=== PATIENT | female | born 1950 | race Caucasian/White ===

== ENCOUNTER 2021-08-09 13:10 | Outpatient (REF) | payer MEDICARE, SELFPAY ==
--- NOTE | ~2021-08-09 | MM_ITS ---
EXAMINATION: BONE DENSITOMETRY CLINICAL INDICATION: Postmenopausal. Encounter for screening for osteoporosis. COMPARISON: None (current study represents initial baseline exam). TECHNIQUE: Using a [employer] DXA System (software version: 13.1) manufactured by [employer], dual-energy x-ray absorptiometry was performed of the lumbar spine and left hip. The images are of good technical quality. Summary results are attached. FINDINGS: AP SPINE L1-L4: BMD 1.153 g/cm2, Z-score 1.0, T-score -0.2, normal. LEFT FEMUR, NECK: BMD 0.790 g/cm2, Z-score -0.4, T-score -1.8, osteopenia. LEFT FEMUR, TOTAL: BMD 0.950 g/cm2, Z-score 0.7, T-score -0.5, normal. IDENTIFIED RISK FACTORS: Hysterectomy. Left oophorectomy. Low calcium intake. Menopause. HISTORY OF FRACTURE: None listed. MEDICATIONS: Calcium or multivitamin. MM/XR DEXA axial skeleton IMPRESSION: 1. DIAGNOSIS: Osteopenia based on the lowest T-score value of -1.8 in the femoral neck applying World Health Organization criteria. 2. 10-YEAR FRACTURE RISK PREDICTION, FRAX: Major osteoporotic fracture (clinical spine, forearm, hip or shoulder) 9.3%. Hip fracture 1.5%. 3. Treatment Recommendations: NOF guidelines recommend consideration for treatment in postmenopausal women and men age 50 and older presenting with the following: -A hip or vertebral (clinical or morphometric) fracture. -T-score less than or equal to -2.5 at the femoral neck or spine after appropriate evaluation to exclude secondary causes. -Low bone mass at the hip or spine and a 10-year fracture probability by FRAX of greater than or equal to 3% for hip fracture or greater than or equal to 20% for major osteoporotic fracture based on the [place] adapted WHO algorithm. 4. Other Recommendations: All treatment decisions require clinical judgment and consideration of individual patient factors, including patient preferences, comorbidities, previous drug use, risk factors not captured in the FRAX model (e.g. frailty, falls, vitamin D deficiency, increased bone turnover, interval significant decline in bone density) and possible under or overestimation of fracture risk by FRAX. Additional medical evaluation for secondary cause of low bone mineral density may be appropriate. FUTURE SCAN RECOMMENDATION: People with diagnosed cases of osteoporosis or at high risk for fracture should have regular bone mineral density tests. For patients eligible for Medicare, routine testing is allowed once every 2 years. The testing frequency can be increased to one year for patients who have rapidly progressing disease, those who are receiving or discontinuing medical therapy to restore bone mass, or have additional risk factors.
--- NOTE | ~2021-08-09 | MM_ITS ---
EXAMINATION: MM SCREENING DIGITAL BREAST TOMOSYNTHESIS, BILATERAL CLINICAL INFORMATION: Screening. Asymptomatic. The lifetime risk of breast cancer based on the Tyrer-Cuzick Model is 6.9%. COMPARISON: Mammography: October 30, 2017 TECHNIQUE: Digital breast tomosynthesis is performed in both the craniocaudal and mediolateral oblique views along with computer-aided detection (CAD). Synthesized 2D images are generated from the tomosynthesis. FINDINGS: There are scattered areas of fibroglandular density (ACR BI-RADS breast composition Category b). There are no significant masses, abnormal calcifications, or other abnormalities. MM/MM tomosynthesis screening BI IMPRESSION: There are no significant changes from prior study. ASSESSMENT: BI-RADS 1: Negative RECOMMENDATION: Routine annual mammography screening. This patient's information was entered into a reminder system with a target due date for their next mammogram.
== END 2021-08-09 13:11 | disposition home or self-care (01) ==
LOC: HO.MAMMO 13:10
PROVIDERS: PCP Internal Medicine; Visit Provider Internal Medicine
DX: Z12.31 Encounter for screening mammogram for malignant neoplasm of breast (principal); Z13.820 Encounter for screening for osteoporosis; M85.80 Other specified disorders of bone density and structure, unspecified site; N95.8 Other specified menopausal and perimenopausal disorders; Z78.0 Asymptomatic menopausal state; Z90.721 Acquired absence of ovaries, unilateral; Z79.899 Other long term (current) drug therapy
CPT/HCPCS: 77063; 77067; 77080

== ENCOUNTER 2021-10-03 11:07 | Outpatient (REF) | payer MEDICARE, SELFPAY ==
[2021-10-03 11:12] LABS: MANUAL DIFF FLAG NO
[2021-10-03 11:59] LABS: Basophils Percent Auto 0.4 % (0-2); Eosinophils Absolute Auto 0.3 X10*3/uL (0.0-0.4); Eosinophils Percent Auto 3.7 % (0-4); Hematocrit 44.8 % (37.0-47.0); Hemoglobin 14.3 g/dl (12.0-16.0); Imm Gran Abs Auto 0.03 X10*3/uL (0.00-0.03); Imm Gran Pct Auto 0.4 % (0.0-0.4); Lymphocytes Percent Auto 25.1 % (20-40); Mean Corpuscular HGB Conc 31.9 g/dl (31.0-35.0); Mean Corpuscular Hemoglobin 29.8 pg (27.0-33.0); Mean Corpuscular Volume 93.3 fL (80.0-98.0); Mean Platelet Volume 10.7 fL (9.4-12.3); Monocytes Absolute Auto 0.6 X10*3/uL (0.1-1.2); Monocytes Percent Auto 7.1 % (2-11); Neutrophils Absolute Auto 4.9 x10*3/uL (2.0-8.3); Neutrophils Percent Auto 63.3 % (45-73); Platelet Count 286 X10*3/uL (160-400); Red Cell Distribution Width 13.1 % (11.0-16.0); White Blood Count 7.8 X10*3/uL (4.8-10.8)
[2021-10-03 12:12] LABS: Estimated Average Glucose 114 mg/dL; Hemoglobin A1c % 5.6 %
[2021-10-03 12:13] LABS: Appearance Urine HAZY; Color Urine YELLOW; Glucose Urine UA NEG (NEG); Leukocyte Esterase Urine NEG (NEG); Nitrite Urine NEG (NEG); Specific Gravity - Urine 1.025 (1.005-1.025); Urine Blood 2+ (NEG); Urine Ketones NEG (NEG); Urine Protein NEG (NEG-TRACE)
[2021-10-03 12:18] LABS: Alanine Aminotransferase 11 U/L (0-31); Albumin Level 4.4 g/dL (3.5-5.0); Alkaline Phosphatase 107 U/L (39-117); Anion Gap 12 (12-20); Aspartate Amino Transferase 14 U/L (5-31); Bilirubin Total 0.4 mg/dL (0.0-1.0); Blood Urea Nitrogen 16 mg/dL (9-16); Calcium 10.1 mg/dL (8.4-10.2); Carbon Dioxide 30 mmol/L (22-29); Chloride 106 mmol/L (96-108); Cholesterol 225 mg/dL; Estimated Glomerular Filt Rate > 60; Glucose Fasting 104 mg/dL (60-99); HDL Cholesterol 42 mg/dL; LDL Cholesterol Calculated 157 mg/dl; Potassium 4.5 mmol/L (3.3-5.1); Sodium 143 mmol/L (135-145); Total Protein 7.4 g/dL (6.5-8.0); Triglycerides 131 mg/dL
[2021-10-03 12:37] LABS: Bacteria Urine 3+ /LPF; Mucus Urine 2+ /LPF; Squamous Epithelial Cell Urine 3+ /LPF
[2021-10-03 12:39] LABS: TSH reflex Free T4 0.02 uIU/mL (0.32-4.0)
[2021-10-03 12:43] LABS: Creatinine Urine 126.78 mg/dL; Microalbum/Creatinine Ratio Ur 10.2 ug/mg cr
[2021-10-03 13:28] LABS: Free T4 (Free Thyroxine) 1.17 ng/dL (0.71-1.85)
== END 2021-10-03 11:08 | disposition home or self-care (01) ==
LOC: HO.LNP 11:07
PROVIDERS: Visit Provider Internal Medicine
DX: E03.9 Hypothyroidism, unspecified (principal); R73.03 Prediabetes; E78.00 Pure hypercholesterolemia, unspecified
CPT/HCPCS: 80053; 80061; 81001; 81003; 82043; 83036; 84439; 84443; 85025

== ENCOUNTER 2022-01-06 10:23 | Outpatient (REF) | payer MEDICARE, SELFPAY ==
[2022-01-06 11:14] LABS: TSH reflex Free T4 0.03 uIU/mL (0.32-4.0)
[2022-01-06 12:08] LABS: Free T4 (Free Thyroxine) 1.38 ng/dL (0.71-1.85)
== END 2022-01-06 10:24 | disposition home or self-care (01) ==
LOC: HO.LNP 10:23
PROVIDERS: Visit Provider Internal Medicine
DX: E03.9 Hypothyroidism, unspecified (principal)
CPT/HCPCS: 84439; 84443

== ENCOUNTER 2022-04-15 10:50 | Outpatient (REF) | payer MEDICARE, SELFPAY ==
[2022-04-15 11:34] LABS: TSH reflex Free T4 1.74 uIU/mL (0.32-4.0)
== END 2022-04-15 10:51 | disposition home or self-care (01) ==
LOC: HO.LNP 10:50
PROVIDERS: Visit Provider Internal Medicine
DX: E03.9 Hypothyroidism, unspecified (principal)
CPT/HCPCS: 84443

== ENCOUNTER 2022-10-09 11:03 | Outpatient (REF) | payer MEDICARE, SELFPAY ==
[2022-10-09 11:08] LABS: MANUAL DIFF FLAG NO
[2022-10-09 11:37] LABS: Basophils Absolute Auto 0.1 X10*3/uL (0.0-0.2); Basophils Percent Auto 0.9 % (0-2); Eosinophils Absolute Auto 0.3 X10*3/uL (0.0-0.4); Eosinophils Percent Auto 3.4 % (0-4); Hematocrit 44.5 % (37.0-47.0); Hemoglobin 14.4 g/dl (12.0-16.0); Imm Gran Abs Auto 0.03 X10*3/uL (0.00-0.03); Imm Gran Pct Auto 0.4 % (0.0-0.4); Lymphocytes Absolute Auto 2.4 X10*3/uL (1.2-4.9); Lymphocytes Percent Auto 27.9 % (20-40); Mean Corpuscular HGB Conc 32.4 g/dl (31.0-35.0); Mean Corpuscular Hemoglobin 30.7 pg (27.0-33.0); Mean Corpuscular Volume 94.9 fL (80.0-98.0); Mean Platelet Volume 10.8 fL (9.4-12.3); Monocytes Absolute Auto 0.6 X10*3/uL (0.1-1.2); Monocytes Percent Auto 7.2 % (2-11); Neutrophils Absolute Auto 5.1 x10*3/uL (2.0-8.3); Neutrophils Percent Auto 60.2 % (45-73); Platelet Count 275 X10*3/uL (160-400); Red Blood Count 4.69 X10*6/uL (4.20-5.50); Red Cell Distribution Width 13.7 % (11.0-16.0); White Blood Count 8.5 X10*3/uL (4.8-10.8)
[2022-10-09 11:45] LABS: Estimated Average Glucose 111 mg/dL; Hemoglobin A1c % 5.5 %
[2022-10-09 11:50] LABS: Appearance Urine Cloudy; Color Urine Yellow; Glucose Urine UA Negative (Negative); Leukocyte Esterase Urine Small (1+) (Negative); Nitrite Urine Negative (Negative); PH 5.5 (5.0-9.0); UMIC TRIGGER UACC YES; Urine Blood Small (1+) (Negative); Urine Ketones Negative (Negative); Urine Protein Trace mg/dL (Neg-Trace)
[2022-10-09 12:14] LABS: Alanine Aminotransferase 18 U/L (0-31); Albumin Level 4.4 g/dL (3.5-5.0); Alkaline Phosphatase 97 U/L (39-117); Anion Gap 13 (12-20); Aspartate Amino Transferase 18 U/L (5-31); Bilirubin Total 0.6 mg/dL (0.0-1.0); Blood Urea Nitrogen 9 mg/dL (9-16); Calcium 9.8 mg/dL (8.4-10.2); Carbon Dioxide 29 mmol/L (22-29); Chloride 105 mmol/L (96-108); Cholesterol 271 mg/dL; Estimated Glomerular Filt Rate > 60; Glucose Fasting 108 mg/dL (60-99); HDL Cholesterol 48 mg/dL; LDL Cholesterol Calculated 181 mg/dl; Potassium 4.4 mmol/L (3.3-5.1); Sodium 143 mmol/L (135-145); Total Protein 7.3 g/dL (6.5-8.0); Triglycerides 214 mg/dL
[2022-10-09 12:25] LABS: Bacteria Urine 1+ (None Seen); Calcium Oxalate Crystals Urine Present; Hyaline Casts Urine 0-2 /LPF (0-2); UACC Culture Trigger YES
[2022-10-09 12:48] LABS: Creatinine Urine 236.03 mg/dL; Microalbum/Creatinine Ratio Ur 19.9 ug/mg cr
== END 2022-10-09 11:04 | disposition home or self-care (01) ==
LOC: HO.LNP 11:03
PROVIDERS: Visit Provider Internal Medicine
DX: E03.9 Hypothyroidism, unspecified (principal); R73.03 Prediabetes; E78.00 Pure hypercholesterolemia, unspecified; R31.29 Other microscopic hematuria
CPT/HCPCS: 80053; 80061; 81001; 82043; 83036; 85025; 87086

== ENCOUNTER 2022-10-17 15:51 | Outpatient (REF) | payer MEDICARE, SELFPAY ==
[2022-10-17 17:29] LABS: Folate > 20.0 ng/mL (> or = 4.0); Vitamin B12 709 pg/mL (200-900)
== END 2022-10-17 15:52 | disposition home or self-care (01) ==
LOC: HO.LNP 15:51
PROVIDERS: Visit Provider Internal Medicine
DX: R41.3 Other amnesia (principal)
CPT/HCPCS: 82607; 82746

== ENCOUNTER 2023-05-11 10:54 | Outpatient (REF) | payer MEDICARE, SELFPAY ==
[2023-05-11 12:42] LABS: Estimated Average Glucose 103 mg/dL; Hemoglobin A1c % 5.2 % (<6.0)
[2023-05-11 12:57] LABS: Alanine Aminotransferase 17 U/L (0-31); Albumin Level 4.3 g/dL (3.5-5.0); Alkaline Phosphatase 94 U/L (39-117); Aspartate Amino Transferase 18 U/L (5-31); Bilirubin Direct 0.2 mg/dL (0.0-0.5); Bilirubin Total 0.5 mg/dL (0.0-1.0); Glucose Fasting 102 mg/dL (60-99); Total Protein 7.6 g/dL (6.5-8.0)
[2023-05-11 13:00] LABS: Cholesterol 244 mg/dL (<200); HDL Cholesterol 42 mg/dL (>40); LDL Cholesterol Calculated 161 mg/dL (<100); Triglycerides 206 mg/dL (<150)
[2023-05-11 13:37] LABS: Reflex LDLD? No
== END 2023-05-11 10:55 | disposition home or self-care (01) ==
LOC: HO.LNP 10:54
PROVIDERS: Visit Provider Internal Medicine
DX: E78.00 Pure hypercholesterolemia, unspecified (principal); R73.03 Prediabetes
CPT/HCPCS: 80061; 80076; 82947; 83036

== ENCOUNTER 2023-05-18 11:02 | Outpatient (REF) | payer MEDICARE, SELFPAY ==
[2023-05-18 11:56] LABS: TSH reflex Free T4 2.86 uIU/mL (0.32-4.0)
== END 2023-05-18 11:03 | disposition home or self-care (01) ==
LOC: HO.LNP 11:02
PROVIDERS: Visit Provider Internal Medicine
DX: E03.9 Hypothyroidism, unspecified (principal)
CPT/HCPCS: 84443

== ENCOUNTER 2023-06-19 09:17 | Outpatient (REF) | payer MEDICARE, SELFPAY ==
--- NOTE | ~2023-06-19 | MR_ITS ---
EXAMINATION: MR BRAIN WITHOUT CONTRAST CLINICAL INFORMATION: Mild cognitive impairment COMPARISON: None. TECHNIQUE: MRI of the brain was obtained using routine sequences without contrast. FINDINGS: No acute infarct. No acute intracranial hemorrhage or extra-axial fluid collection. Mild generalized parenchymal volume loss without lobar predilection. A few nonspecific T2 FLAIR hyperintense foci within the high bifrontal subcortical white matter. Chronic infarct in the right cerebellum. No mass lesion, mass effect, or herniation pattern. Normal intracranial arterial and dural venous sinus flow voids. Normal appearance of the midline structures. Patulous appearance of Meckel's caves with suspected small petrous apex encephaloceles. The orbits are grossly unremarkable. The paranasal sinuses and mastoids are well aerated. Normal marrow signal. MR/MR head/brain wo con IMPRESSION: Mild age-appropriate global cerebral volume loss without lobar predilection. Chronic right cerebellar infarct.
== END 2023-06-19 09:18 | disposition home or self-care (01) ==
LOC: HO.MRI 09:17
PROVIDERS: PCP Internal Medicine; Visit Provider Internal Medicine
DX: G31.84 Mild cognitive impairment of uncertain or unknown etiology (principal)
CPT/HCPCS: 70551

== ENCOUNTER 2023-07-27 14:47 | Outpatient (REF) | payer MEDICARE, SELFPAY ==
--- NOTE | ~2023-07-27 | US_ITS ---
EXAMINATION: US EXTRACRANIAL CAROTID DUPLEX, BILATERAL CLINICAL INFORMATION: Chronic right cerebral infarct seen on MRI. COMPARISON: MRI head/brain 06/19/2023. TECHNIQUE: Real-time ultrasound and Doppler techniques (integrating B-mode 2-D vascular images, Doppler spectral analysis and color-flow Doppler imaging) were utilized to interrogate the extracranial carotid arteries, the vertebral arteries and proximal subclavian arteries bilaterally. The degree of stenosis is determined by criteria similar to NASCET. FINDINGS: Some small bilateral neck lymph nodes are seen. Right Side: 1. There is mild atherosclerotic plaque seen in the bifurcation/proximal ICA region. 2. The common carotid artery PSV proximally is 105 cm/s and distally 98 cm/s. 3. The proximal internal carotid artery velocities are 89 cm/s systolic and 35 cm/s diastolic. 4. The proximal external carotid artery PSV is 79 cm/s. 5. The vertebral artery shows antegrade flow. 6. The subclavian artery waveforms are normal. Left Side: 1. There is mild atherosclerotic plaque seen in the bifurcation/proximal ICA region. 2. The common carotid artery PSV proximally is 104 cm/s and distally 93 cm/s. 3. The proximal internal carotid artery velocities are 67 cm/s systolic and 28 cm/s diastolic. 4. The proximal external carotid artery PSV is 92 cm/s. 5. The vertebral artery shows antegrade flow. 6. The subclavian artery waveforms are normal. US/US carotid duplex BI IMPRESSION: 1. RIGHT: Minimal, non-hemodynamically significant stenosis of the proximal right internal carotid artery corresponding to a 0-49% stenosis by velocity criteria. 2. LEFT: Minimal, non-hemodynamically significant stenosis of the proximal left internal carotid artery corresponding to a 0-49% stenosis by velocity criteria.
== END 2023-07-27 14:48 | disposition home or self-care (01) ==
LOC: HO.US 14:47
PROVIDERS: PCP Internal Medicine; Visit Provider Internal Medicine
DX: Z86.73 Personal history of transient ischemic attack (TIA), and cerebral infarction without residual deficits (principal)
CPT/HCPCS: 93880

== ENCOUNTER 2023-10-19 18:23 | Emergency (ER) | payer MEDICARE, OTHER, SELFPAY ==
--- NOTE | ~2023-10-19 | CT_ITS ---
EXAMINATION: CT ABDOMEN AND PELVIS WITHOUT CONTRAST CLINICAL INFORMATION: Reason for Exam left flank/ LLQ pain. COMPARISON: 02/17/2012 CT scan. TECHNIQUE: Multidetector volumetric imaging was performed from the superior aspect of the liver through the pubic symphysis without contrast per renal stone protocol. Sagittal and coronal reformatted images were obtained on the technologist workstation. This CT examination was performed using dose optimization techniques as appropriate, variously including the following: *Automated exposure control *Adjustment of mA and/or kV according to patient size (this includes techniques or standardized protocols for targeted exams where dose is matched to indication/reason for exam; i.e. extremities or head) *Use of iterative reconstruction technique DLP: 706 mGy-cm. FINDINGS: LUNG BASES: The visualized lung bases are unremarkable. LIVER, GALLBLADDER, BILIARY TREE: The non-contrast liver is normal in size, shape, and attenuation. No focal hepatic lesion or biliary ductal dilatation is present. The gallbladder surgically absent. PANCREAS: Unremarkable. SPLEEN: Unremarkable. ADRENAL GLANDS: Unremarkable. KIDNEYS AND URETERS: There is left-sided hydronephrosis and perinephric stranding. The left ureter is mildly prominent throughout its course extending up to a very subtle 2 mm calcification in the distal left ureter just proximal to the UVJ. This subtle calculi is best appreciated on coronal image 60/90. Contralateral right kidney unremarkable. BLADDER: Decompressed GASTROINTESTINAL TRACT: Scattered colonic diverticulosis but no evidence for diverticulitis. Normal-appearing appendix in the right lower quadrant. Visualized small bowel unremarkable ABDOMINAL WALL: No significant hernia is appreciated. LYMPHOVASCULAR STRUCTURES: Vascular calcification within the aorta iliac system. PELVIC VISCERA: Likely surgically absent OSSEUS STRUCTURES: Multilevel degenerative changes in the spine. CT/CT abdomen pelvis wo IV con IMPRESSION: Left-sided hydronephrosis and hydroureter extending up to a very subtle 2 mm calcification in the distal left ureter just proximal to the UVJ.
--- NOTE | 2023-10-19 19:03 | ED.GENADULT ---
HPI - General Adult General Chief complaint: Abdominal Pain Stated complaint: vomiting,lower abd pain Time Seen by Provider: 10/20/23 00:16 Source: patient Mode of arrival: ambulatory Limitations: no limitations History of Present Illness HPI narrative: Patient with no significant past medical history noticed sudden onset of pain in the left flank area radiating to left lower abdomen started early in a.m. associated with nausea and vomiting multiple times patient had CT scan done prior to my evaluation which showed 2 mm UVJ stone on the left side with hydro patient urinated in the ER and noticed small stone in the urine after that patient felt much better no pain at this time no nausea no vomiting no prior history of kidney stone no fever no chills Related Data Allergies Allergy/AdvReac Type Severity Reaction Status Date / Time No Known Allergies Allergy Verified 10/19/23 19:04 Review of Systems Review of Systems: Yes all other systems are reviewed and are negative [facility] Social History Social History Smoked in Last 30 Days: No Use of substances other than those prescribed or required for medical reasons: No Advance Directives: No Advance Directives Information Provided: No Physical Exam ED Vital Signs: Vital Signs - 24 hr 10/19/23 19:05 10/19/23 23:28 10/20/23 01:21 Temperature 97.4 F 98.2 F 98.0 F Pulse Rate 91 81 82 Respiratory Rate 20 16 14 Blood Pressure 150/70 H 149/79 H 138/59 L Pulse Oximetry 95 95 97 Oxygen Delivery Method Room Air Room Air Room Air 10/20/23 02:25 Temperature Pulse Rate 76 Respiratory Rate 14 Blood Pressure 117/52 L Pulse Oximetry Oxygen Delivery Method BMI result Body Mass Index 39.0 Appearance: Alert. Oriented X3. No acute distress. Eyes: PERRLA, No Nystagmus ENT: Pharynx normal. Oral Mucosa moist Neck: Normal inspection. Neck supple. CVS: Normal heart rate and rhythm. Pulses normal. Respiratory: No respiratory distress. Equal air entry bilateral, Abdomen: Soft and nontender. Bowel sounds are present, no mass palpable, no CVA tenderness Skin: Skin warm and dry. Normal skin color. Normal skin turgor. Extremities: No lower extremity edema. No calf tenderness Neuro: Oriented X 3. No motor deficit. Course Course Course Narrative: RME:?73 yo female here for eval of nausea, vomiting, and constant left flank pain now radiating to LLQ beginning this morning. admits daughter recently got over the stomach flu. endorses distant hx of SBO which presented similarly. last BM this morning was loose stool. denies fever, chills, dysuria, hematuria. 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 labs, serology, UA, and ct ordered. Full HPI, ROS and PE to be performed by the primary ED provider. Medications Administered Discontinued Medications Generic Name Dose Route Start Last Admin Trade Name [place] PRN Reason Stop Dose Admin Sodium Chloride 1,000 mls @ 999 mls/hr 10/20/23 00:22 10/20/23 01:43 Ns IV 10/20/23 01:22 Infused .Q1H1M ONE Infusion Morphine Sulfate 4 mg 10/20/23 00:22 10/20/23 00:42 Morphine Sulfate 4 Mg/Ml Cartridge IVPUSH 10/20/23 00:23 Not Given ONCE ONE Protocol Ondansetron HCl 4 mg 10/20/23 00:22 10/20/23 00:43 Ondansetron Hcl 4 Mg/2 Ml Vial IVPUSH 10/20/23 00:23 Not Given ONCE ONE Medical Decision Making Medical Decision Making [facility] Narrative: Patient with acute left flank pain clinically with renal colic passed the stone in the ER CT scan showed hydro patient feeling much better at this without any pain medication Differential Diagnosis Differential Diagnoses: The differential diagnosis associated with the presentation includes Renal colic/kidney stones/UTI Lab Data [facility] Lab Attestation statement: I reviewed the patient's lab results. 10/19/23 19:31 10/19/23 19:31 Labs: Lab Results 10/19/23 Range/Units 19:31 WBC 17.2 H (4.8-10.8) X10*3/uL RBC 4.58 (4.20-5.50) X10*6/uL Hgb 14.0 (12.0-16.0) g/dl Hct 41.7 (37.0-47.0) % MCV 91.0 (80.0-98.0) fL MCH 30.6 (27.0-33.0) pg MCHC 33.6 (31.0-35.0) g/dl RDW 13.2 (11.0-16.0) % Plt Count 252 (160-400) X10*3/uL MPV 9.9 (9.4-12.3) fL Immature Gran % (Auto) 0.3 (0.0-0.4) % Neut % (Auto) 88.0 H (45-73) % Lymph % (Auto) 6.2 L (20-40) % [place]ug[place] % (Auto) 4.8 (2-11) % Eos % (Auto) 0.2 (0-4) % Baso % (Auto) 0.5 (0-2) % Lymph # (Auto) 1.1 L (1.2-4.9) X10*3/uL [place]ug[place] # (Auto) 0.8 (0.1-1.2) X10*3/uL Eos # (Auto) 0.0 (0.0-0.4) X10*3/uL Baso # (Auto) 0.1 (0.0-0.2) X10*3/uL Abs Immat Gran (auto) 0.06 H (0.00-0.03) X10*3/uL Absolute Neuts (auto) 15.1 H (2.0-8.3) x10*3/uL Absolute Nucleated RBC 0.000 (0.0-0.012) X10*3/uL Nucleated RBC % (auto) 0.0 (0.0-0.2) /100WBC Sodium 142 (135-145) mmol/L Potassium 4.1 (3.3-5.1) mmol/L Chloride 107 (96-108) mmol/L Carbon Dioxide 24 (22-29) mmol/L Anion Gap 15 (12-20) BUN 13 (9-16) mg/dL Creatinine 0.89 (0.5-1.4) mg/dL Estim Creat Clear Calc 64.3 Estimated GFR > 60 Random Glucose 124 H (60-115) mg/dL Calcium 10.1 (8.4-10.2) mg/dL Total Bilirubin 0.4 (0.0-1.0) mg/dL AST 22 (5-31) U/L ALT 22 (0-31) U/L Alkaline Phosphatase 114 (39-117) U/L Total Protein 7.9 (6.5-8.0) g/dL Albumin 4.5 (3.5-5.0) g/dL Lipase 18 (8-78) U/L Urine Color Yellow Urine Appearance Cloudy Urine pH 6.5 (5.0-9.0) Ur Specific Gordon 1.025 (1.005-1.025) Urine Protein 30 (1+) H (Neg-Trace) mg/dL Urine Glucose (UA) Negative (Negative) mg/dL Urine Ketones 15 (Negative) mg/dL Urine Blood Large (3+) H (Negative) Urine Nitrite Negative (Negative) Ur Leukocyte Esterase Negative (Negative) Urine RBC >20 H (0-2) /HPF Urine WBC 0-5 (0-5) /HPF Ur Squamous Epith Cells 0-2 (0-2) /HPF Urine Bacteria None Seen (None Seen) Hyaline Casts 0-2 (0-2) /LPF Influenza Type A (PCR) NEGATIVE (Negative) Influenza Type B (PCR) NEGATIVE (Negative) RSV RNA Qual (PCR) NEGATIVE (Negative) SARS-CoV-2 RNA (RT-PCR) NEGATIVE (Negative) Independent Interpretation I performed an independent interpretation of an: CT Scan Radiology Impression Discussion of test interpretation with radiology: I have reviewed the radiologist's reading. Discharge Plan Discharge Clinical Impression: Calculus of distal left ureter Patient Disposition: Home, Self-Care Instructions: Renal Colic (ED) Additional Instructions: Drink plenty of fluids Avoid food containing oxalate You had 2 mm stone on the left side which already passed hopefully you will not have pain anymore Interventions: ED Discharge Assessment Last Done: 10/20/23 02:25 Discharge Date/Time: 10/20/23 02:26
[2023-10-19 19:05] VITALS: BP 150/70; PULSE 91; RESP 20; TEMP 36.3; O2SAT 95; BMI 39.0
[2023-10-19 19:38] LABS: MANUAL DIFF FLAG NO
[2023-10-19 19:39] LABS: Basophils Absolute Auto 0.1 X10*3/uL (0.0-0.2); Basophils Percent Auto 0.5 % (0-2); Eosinophils Percent Auto 0.2 % (0-4); Hematocrit 41.7 % (37.0-47.0); Imm Gran Abs Auto 0.06 X10*3/uL (0.00-0.03); Imm Gran Pct Auto 0.3 % (0.0-0.4); Lymphocytes Absolute Auto 1.1 X10*3/uL (1.2-4.9); Lymphocytes Percent Auto 6.2 % (20-40); Mean Corpuscular HGB Conc 33.6 g/dl (31.0-35.0); Mean Corpuscular Hemoglobin 30.6 pg (27.0-33.0); Mean Platelet Volume 9.9 fL (9.4-12.3); Monocytes Absolute Auto 0.8 X10*3/uL (0.1-1.2); Monocytes Percent Auto 4.8 % (2-11); Neutrophils Absolute Auto 15.1 x10*3/uL (2.0-8.3); Platelet Count 252 X10*3/uL (160-400); Red Blood Count 4.58 X10*6/uL (4.20-5.50); Red Cell Distribution Width 13.2 % (11.0-16.0); White Blood Count 17.2 X10*3/uL (4.8-10.8)
[2023-10-19 19:40] LABS: Appearance Urine Cloudy; Color Urine Yellow; Glucose Urine UA Negative (Negative); Leukocyte Esterase Urine Negative (Negative); Nitrite Urine Negative (Negative); PH 6.5 (5.0-9.0); Specific Gravity - Urine 1.025 (1.005-1.025); UMIC TRIGGER UACC YES; Urine Blood Large (3+) (Negative); Urine Ketones 15 mg/dL (Negative); Urine Protein 30 (1+) mg/dL (Neg-Trace)
[2023-10-19 19:45] LABS: Bacteria Urine None Seen (None Seen); Hyaline Casts Urine 0-2 /LPF (0-2); RBC Urine >20 /HPF (0-2); Squamous Epithelial Cell Urine 0-2 /HPF (0-2); WBC Urine 0-5 /HPF (0-5)
[2023-10-19 19:56] LABS: Alanine Aminotransferase 22 U/L (0-31); Albumin Level 4.5 g/dL (3.5-5.0); Alkaline Phosphatase 114 U/L (39-117); Anion Gap 15 (12-20); Aspartate Amino Transferase 22 U/L (5-31); Bilirubin Total 0.4 mg/dL (0.0-1.0); Blood Urea Nitrogen 13 mg/dL (9-16); Calcium 10.1 mg/dL (8.4-10.2); Carbon Dioxide 24 mmol/L (22-29); Chloride 107 mmol/L (96-108); Creatinine Clr Calc Pharmacy 64.3; Estimated Glomerular Filt Rate > 60; Glucose Random 124 mg/dL (60-115); Lipase 18 U/L (8-78); Potassium 4.1 mmol/L (3.3-5.1); Sodium 142 mmol/L (135-145); Total Protein 7.9 g/dL (6.5-8.0)
[2023-10-19 20:18] LABS: Influenza A PCR NEGATIVE (Negative); Influenza B PCR NEGATIVE (Negative); Resp Syncy Virus RNA Qual PCR NEGATIVE (Negative); SARS COV2 PCR INHOUSE NEGATIVE (Negative)
[2023-10-19 23:28] VITALS: BP 149/79; PULSE 81; RESP 16; TEMP 36.8; O2SAT 95
[2023-10-20] MEDS: 0.9 % Sodium Chloride 1,000 ML 999 ML IV (00:42)
--- NOTE | 2023-10-20 00:55 | PC.NURSE ---
Pt declines zofran and morphine at this time.
[2023-10-20 01:21] VITALS: BP 138/59; PULSE 82; RESP 14; TEMP 36.7; O2SAT 97
[2023-10-20 02:25] VITALS: BP 117/52; PULSE 76; RESP 14
== END 2023-10-20 02:26 | disposition home or self-care (01) ==
PROVIDERS: Physician Assistant Medical; Emergency Provider Internal Medicine; PCP Internal Medicine
DX: N20.1 Calculus of ureter (principal); R10.32 Left lower quadrant pain; R11.2 Nausea with vomiting, unspecified; Z11.52 Encounter for screening for COVID-19; Z20.822 Contact with and (suspected) exposure to COVID-19; Z79.899 Other long term (current) drug therapy
CPT/HCPCS: 0241U; 36415; 74176; 80053; 81001; 83690; 85025; 96360; 99284; 99285

== ENCOUNTER 2023-10-30 11:38 | Outpatient (REF) | payer MEDICARE, OTHER, SELFPAY ==
[2023-10-30 11:43] LABS: MANUAL DIFF FLAG NO
[2023-10-30 12:26] LABS: Basophils Absolute Auto 0.1 X10*3/uL (0.0-0.2); Basophils Percent Auto 0.6 % (0-2); Eosinophils Absolute Auto 0.4 X10*3/uL (0.0-0.4); Eosinophils Percent Auto 4.5 % (0-4); Hemoglobin 14.3 g/dl (12.0-16.0); Imm Gran Abs Auto 0.03 X10*3/uL (0.00-0.03); Imm Gran Pct Auto 0.4 % (0.0-0.4); Lymphocytes Percent Auto 23.5 % (20-40); Mean Corpuscular HGB Conc 31.8 g/dl (31.0-35.0); Mean Corpuscular Hemoglobin 29.9 pg (27.0-33.0); Mean Corpuscular Volume 94.1 fL (80.0-98.0); Mean Platelet Volume 10.3 fL (9.4-12.3); Monocytes Absolute Auto 0.7 X10*3/uL (0.1-1.2); Monocytes Percent Auto 7.6 % (2-11); Neutrophils Absolute Auto 5.4 x10*3/uL (2.0-8.3); Neutrophils Percent Auto 63.4 % (45-73); Platelet Count 291 X10*3/uL (160-400); Red Blood Count 4.78 X10*6/uL (4.20-5.50); Red Cell Distribution Width 13.2 % (11.0-16.0); White Blood Count 8.5 X10*3/uL (4.8-10.8)
[2023-10-30 12:28] LABS: Appearance Urine Cloudy; Color Urine Yellow; Glucose Urine UA Negative (Negative); Leukocyte Esterase Urine Trace (Negative); Nitrite Urine Negative (Negative); UMIC TRIGGER UACC YES; Urine Blood Moderate (2+) (Negative); Urine Ketones Negative (Negative); Urine Protein Negative (Neg-Trace)
[2023-10-30 12:38] LABS: Estimated Average Glucose 111 mg/dL; Hemoglobin A1c % 5.5 % (<6.0)
[2023-10-30 12:49] LABS: Bacteria Urine Trace (None Seen); Calcium Oxalate Crystals Urine Present; Hyaline Casts Urine 0-2 /LPF (0-2); RBC Urine 0-2 /HPF (0-2); WBC Urine 0-5 /HPF (0-5)
[2023-10-30 13:05] LABS: Alanine Aminotransferase 23 U/L (0-31); Albumin Level 4.3 g/dL (3.5-5.0); Alkaline Phosphatase 113 U/L (39-117); Anion Gap 7 (12-20); Aspartate Amino Transferase 20 U/L (5-31); Bilirubin Total 0.5 mg/dL (0.0-1.0); Blood Urea Nitrogen 10 mg/dL (9-16); Calcium 9.7 mg/dL (8.4-10.2); Carbon Dioxide 35 mmol/L (22-29); Chloride 104 mmol/L (96-108); Cholesterol 132 mg/dL (<200); Estimated Glomerular Filt Rate > 60; Glucose Fasting 97 mg/dL (60-99); HDL Cholesterol 40 mg/dL (>40); LDL Cholesterol Calculated 66 mg/dL (<100); Potassium 3.9 mmol/L (3.3-5.1); Sodium 142 mmol/L (135-145); Total Protein 7.6 g/dL (6.5-8.0); Triglycerides 134 mg/dL (<150)
[2023-10-30 13:07] LABS: TSH reflex Free T4 1.58 uIU/mL (0.32-4.0)
[2023-10-30 13:08] LABS: Microalbum/Creatinine Ratio Ur 7.1 ug/mg cr (<30)
== END 2023-10-30 11:39 | disposition home or self-care (01) ==
LOC: HO.LNP 11:38
PROVIDERS: Visit Provider Internal Medicine
DX: E03.9 Hypothyroidism, unspecified (principal); E78.00 Pure hypercholesterolemia, unspecified; R73.09 Other abnormal glucose
CPT/HCPCS: 80053; 80061; 81001; 82043; 82570; 83036; 84443; 85025

== ENCOUNTER 2023-12-04 11:27 | Outpatient (REF) | payer MEDICARE, OTHER, SELFPAY ==
[2023-12-04 11:38] LABS: Appearance Urine Clear; Color Urine Yellow; Glucose Urine UA Negative (Negative); Leukocyte Esterase Urine Trace (Negative); Nitrite Urine Negative (Negative); UMIC TRIGGER UA YES; Urine Blood Small (1+) (Negative); Urine Ketones Negative (Negative); Urine Protein Negative (Neg-Trace)
[2023-12-04 11:50] LABS: Bacteria Urine Trace (None Seen); Hyaline Casts Urine 0-2 /LPF (0-2); Other Crystals Urine Present; WBC Urine 0-5 /HPF (0-5)
== END 2023-12-04 11:28 | disposition home or self-care (01) ==
LOC: HO.LNP 11:27
PROVIDERS: Visit Provider Internal Medicine
DX: R31.29 Other microscopic hematuria (principal)
CPT/HCPCS: 81001

== ENCOUNTER 2024-05-03 11:49 | Outpatient (REF) | payer MEDICARE, OTHER, SELFPAY ==
[2024-05-03 12:37] LABS: Estimated Average Glucose 114 mg/dL; Hemoglobin A1c % 5.6 % (<6.0)
[2024-05-03 12:55] LABS: Alanine Aminotransferase 19 U/L (0-31); Albumin Level 4.1 g/dL (3.5-5.0); Alkaline Phosphatase 122 U/L (39-117); Aspartate Amino Transferase 18 U/L (5-31); Bilirubin Direct 0.2 mg/dL (0.0-0.5); Bilirubin Total 0.4 mg/dL (0.0-1.0); Cholesterol 126 mg/dL (<200); Glucose Fasting 111 mg/dL (60-99); HDL Cholesterol 36 mg/dL (>40); LDL Cholesterol Calculated 68 mg/dL (<100); Total Protein 7.3 g/dL (6.5-8.0); Triglycerides 110 mg/dL (<150)
[2024-05-03 13:01] LABS: Reflex LDLD? No
== END 2024-05-03 11:50 | disposition home or self-care (01) ==
LOC: HO.LNP 11:49
PROVIDERS: Visit Provider Internal Medicine
DX: E78.00 Pure hypercholesterolemia, unspecified (principal); R73.09 Other abnormal glucose
CPT/HCPCS: 80061; 80076; 82947; 83036

== ENCOUNTER 2024-11-01 10:09 | Outpatient (REF) | payer MEDICARE, OTHER, SELFPAY ==
[2024-11-01 10:12] LABS: MANUAL DIFF FLAG NO
[2024-11-01 10:54] LABS: Appearance Urine Clear; Basophils Absolute Auto 0.1 X10*3/uL (0.0-0.2); Basophils Percent Auto 0.8 % (0-2); Color Urine Yellow; Eosinophils Absolute Auto 0.4 X10*3/uL (0.0-0.4); Eosinophils Percent Auto 4.1 % (0-4); Glucose Urine UA Negative (Negative); Hematocrit 44.8 % (37.0-47.0); Hemoglobin 14.3 g/dl (12.0-16.0); Imm Gran Abs Auto 0.04 X10*3/uL (0.00-0.03); Imm Gran Pct Auto 0.4 % (0.0-0.4); Leukocyte Esterase Urine Negative (Negative); Lymphocytes Absolute Auto 2.4 X10*3/uL (1.2-4.9); Lymphocytes Percent Auto 26.4 % (20-40); Mean Corpuscular HGB Conc 31.9 g/dl (31.0-35.0); Mean Corpuscular Hemoglobin 30.2 pg (27.0-33.0); Mean Corpuscular Volume 94.7 fL (80.0-98.0); Mean Platelet Volume 10.4 fL (9.4-12.3); Monocytes Absolute Auto 0.7 X10*3/uL (0.1-1.2); Monocytes Percent Auto 7.6 % (2-11); Neutrophils Absolute Auto 5.5 x10*3/uL (2.0-8.3); Neutrophils Percent Auto 60.7 % (45-73); Nitrite Urine Negative (Negative); PH 6.5 (5.0-9.0); Platelet Count 291 X10*3/uL (160-400); Red Blood Count 4.73 X10*6/uL (4.20-5.50); Red Cell Distribution Width 13.7 % (11.0-16.0); UMIC TRIGGER UACC YES; Urine Blood Trace (Negative); Urine Ketones Negative (Negative); Urine Protein Negative (Neg-Trace)
[2024-11-01 11:08] LABS: Alanine Aminotransferase 27 U/L (0-31); Albumin Level 4.4 g/dL (3.5-5.0); Alkaline Phosphatase 113 U/L (39-117); Anion Gap 10 (12-20); Aspartate Amino Transferase 28 U/L (5-31); Bacteria Urine Trace (None Seen); Bilirubin Total 0.5 mg/dL (0.0-1.0); Blood Urea Nitrogen 15 mg/dL (9-16); Calcium 9.7 mg/dL (8.4-10.2); Carbon Dioxide 31 mmol/L (22-29); Chloride 105 mmol/L (96-108); Cholesterol 159 mg/dL (<200); Estimated Glomerular Filt Rate > 60; Glucose Fasting 103 mg/dL (60-99); HDL Cholesterol 51 mg/dL (>40); Hyaline Casts Urine 0-2 /LPF (0-2); LDL Cholesterol Calculated 86 mg/dL (<100); Potassium 4.2 mmol/L (3.3-5.1); RBC Urine 0-2 /HPF (0-2); Sodium 142 mmol/L (135-145); Total Protein 8.1 g/dL (6.5-8.0); Triglycerides 110 mg/dL (<150); WBC Urine 0-5 /HPF (0-5)
[2024-11-01 11:09] LABS: Other Crystals Urine Present
[2024-11-01 11:10] LABS: Estimated Average Glucose 114 mg/dL; Hemoglobin A1c % 5.6 % (<6.0)
[2024-11-01 11:50] LABS: Creatinine Urine 121.56 mg/dL; Microalbum/Creatinine Ratio Ur 6.5 ug/mg cr (<30)
--- OUTSIDE RECORDS SUMMARY | 2024-11-01 11:55 | XMS_ITS ---
Author Organization Riley Gottlieb MD Address [address] [place] [phone] Care Team Providers Care Car Stereo Installer Name Role Phone Chery Riley Primary Care Provider [phone] Allergies No Known Allergies REASON FOR VISIT 6 MO F/U Encounters Encounter Location Date Provider Diagnosis Riley Gottlieb MD 10 [facility] [address] [place] [phone] 05/19/2024 Riley Gottlieb Plan Of Treatment Next Appt Details Provider Name:Rliey Saunders ier, 11/08/2024 10:30:00 AM, 10 [facility], Suite [facility], [place], [place], [phone], Progress Notes * Katherine BOLANOS MDOB: [birth year] (74 yo F)Acc No.[id number]:05/19/2024 Progress Notes Patient:?Katherine BOLANOS Provider:?Riley Gottlieb MD :1950???Age:74 Y???Sex:Female D ate:05/19/2024 Address:[address], [place], [id number] Subjective: * Chief Complaints: * ???1. 6 MO F/U. * ROS:?General/Constitutional:?Denies?Chills.?Denies?Fatigue.?Denies?Fever.?Denies?Headache.?Respiratory:?Denies?Cough.?Denies?Shortness of breath at rest.?Denies?Shortness of breath with exertion.?Gastrointestinal:?Denies?Diarrhea.?Denies?Nausea.? * Medical History:?Hematuria w ork up 2003, Colonoscopy refused again 2016 2022 thinking about it refused 2023, Low HDL (under 40), Spoke to rediologist who read mri and she says the [place] was insignificant. * Allergies:?N.K.D.A. Objective: * Vitals:? * ???Past Orders: ???Lab:Liver Panel (Order Da te - 05/03/2024) (Collection Date & Time - 05/03/2024) ? Value Reference Range ?Bilirubin Total 0.4 0.0- 1.0 - mg/dL ?Bilirubin Direct 0.2 0.0 -0.5 - mg/dL ?Aspartate Amino Transferase 18 5-31 - U/L ?Alanine Aminotransferase 19 0-31 - U/L ?Total Protein 7.3 6.5-8. 0 - g/dL ?Albumin Level 4.1 3.5-5. 0 - g/dL ?Alkaline Phosphatase 122 H 39-117 - U/L ???Lab:Glucose Fasting (Orde r Date - 05/03/2024) (Collection Date & Time - 05/03/2024) ? Value Reference Range ?Glucose Fasting 111 H 60-9 9 - mg/dL ???Lab:Lipid Panel with Refl ex (Order Date - 05/03/2024) (Collection Date & Time - 05/03/2024) ? Value Reference Range ?Triglycerides 110 <150 - mg/dL ?Cholesterol 126 <200 - m g/dL ?LDL Cholesterol Calculated 68 <100 - mg/dL ?HDL Cholesterol 36 L >40 - mg/dL ???Lab:Hemoglobin A1c (Order Date - 05/03/2024) (Collection Date & Time - 05/03/2024) ? Value Reference Range ?Hemoglobin A1c % 5.6 <6. 0 - % ?Estimated Average Glucose 114 - mg/dL Assessment: Plan: * Treatment: * * The named appointment provid er may or may not be the originator of this progress note, and it is not deemed complete until electronically signed by the appointment provider. Sign off status: Pending * Provider:?Riley Gottlieb MD Date:?0 05/19/2024 Generated for Catrachito ruiz/Hanh/Demetria on:?11/01/2024 11:55 AM EDT
--- OUTSIDE RECORDS SUMMARY | 2024-11-01 11:55 | XMS_ITS ---
Author Organization Riley Gottlieb MD Address [address] [place], [place] [phone] Care Team Providers Care Permit Agent Name Role Phone Riley Gottlieb Primary Care Provider [phone] Results Component Value Reference Range Notes Liver Panel Reviewed date:05/03/2024 06:00:11 PM Interpretation: Performing Lab:[facility], [address] [place] [phone] Notes/Report: Bilirubin Total 0.4 0.0-1.0 mg/dL Bilirubin Direct 0.2 0.0-0.5 mg/dL Aspartate Amino Transferase 18 5-31 U/L Alanine Aminotransferase 19 0-31 U/L Total Protein 7.3 6.5-8.0 g/dL Albumin Level 4.1 3.5-5.0 g/dL Alkaline Phosphatase 122 39-117 U/L Glucose Fasting Reviewed date:05/03/2024 05:59:59 PM Interpretation: Performing Lab:[facility], [address] [place] [phone] Notes/Report: Glucose Fasting 111 60-99 mg/dL A fasting glucose from 100-125 mg/dl is considered impaired (pre-diabetes). Lipid Panel with Reflex Reviewed date:05/03/2024 06:01:38 PM Interpretation: Performing Lab:[facility], [address] [place] [phone] Notes/Report: Triglycerides 110 <150 mg/dL Desirable Triglyceride: [...] A1c Reviewed date:05/03/2024 05:59:50 PM Interpretation: Performing Lab:[facility], [address] [place] [phone] Notes/Report: Hemoglobin A1c % 5.6 <6.0 % [...] average glucose, using the formula of the J2F-Smfcinb Average Glucose study (ADAG), Diabetes Care, Vol.31,#8, Mar. 2007 REASON FOR VISIT FASTING LIPIDS Immunizations Vaccine Route Administration Date Status Comme nts Influenza High Dose IM Intramuscular 05/03/2024 Administer ed Encounters Encounter Location Date Provider Diagnosis Riley Gottlieb MD [address] [place] [address] Drive [address] [place], [place] [phone] 05/03/2024 Riley Gottlieb Pure hypercholestero lemia E78.00 ; Encounter for immunization Z23 and Prediabetes R73.09 Assessments Encounter Date Diagnosis (ICD Code) Assessment Notes Treatment Notes Treatment Clinical Notes Section Notes 05/03/2024 Pure hypercholesterolemia (ICD-10 - E78.00) 05/03/2024 Encounter for immunization (ICD-10 - Z23) 05/03/2024 Prediabetes (ICD-10 - R73.09) Plan Of Treatment Next Appt Details Provider Name:Riley Saunders ier, 11/08/2024 10:30:00 AM, [address] [facility], [address], [place], [place], [phone], Progress Notes * Katherine BOLANOS MDOB: [birth year] (74 yo F)Acc No.[id number]:05/03/2024 Progress Note Patient:?Katherine BOLANOS Provider:?Riley Gottlieb MD :1950???Age:73 Y???Sex:Female D ate:05/03/2024 Address:[place] [address], [id number] Subjective: * Chief Complaints: * ???1. FASTING LIPIDS. * Medical History:? Objective: * Vitals:? Assessment: * Assessment: 1.?Encounter for immunizatio n - Z23 (Primary)???2.?Pure hypercholesterolemia - E78.00???3.?Prediabetes - R73.09??? Plan: * Treatment: 2.?Prediabetes?LAB: Liver Panel (Collection Date & Time - 05/03/2024) ?LAB: Glucose Fasting (Collection Date & Time - 05/03/2024) ?LAB: Lipid Panel with Reflex (Collection Date & Time - 05/03/2024) ?LAB: Hemoglobin A1c (Collection Date & Time - 05/03/2024) * Immunizations:? Influenza High Dose : 0.5 mL (Dose No:1) (Route: Intramuscular) given by Alice Ng , Office Staff on Left Deltoid * Procedure Codes:?91463 FLU V ACC PRSV FREE INC ANTIG, G0008 ADMN FLU VAC NO FEE SCHED SAME DAY, 75339 VENIPUNCT, ROUTINE* * * The named appointment provid er may or may not be the originator of this progress note, and it is not deemed complete until electronically signed by the appointment provider. Sign off status: Pending * Provider:?Riley Gottlieb MD Date:?0 05/03/2024 Generated for Catrachito ruiz/Hanh/Ceesmitting on:?11/01/2024 11:54 AM EDT
--- OUTSIDE RECORDS SUMMARY | 2024-11-01 11:56 | XMS_ITS ---
Author Organization Riley Gottlieb MD Address [address] [place] [phone] Care Team Providers Care Supervisor [employer] Name Role Phone Riley Gottlieb Primary Care Provider Results Component Value Reference Range Notes Complete Blood Count Auto Di ff (Not yet reviewed by provider) Interpretation: Performing Lab:[facility], [address] [place] [phone] Notes/Report: White Blood Count 9.0 4.8-10.8 X10*3/uL [...] NRBC Abs Auto 0.000 0.0-0.012 X10*3/uL Comprehensive [place]. Panel Fa st (Not yet reviewed by provider) Interpretation: Performing Lab:[facility], [address] [place] [phone] Notes/Report: Sodium 142 135-145 mmol/L Potassium 4.2 [...] Alkaline Phosphatase 113 39-117 U/L Lipid Panel (Not yet review ed by provider) Interpretation: Performing Lab:[address] [phone] Notes/Report: Triglycerides 110 <150 mg/dL Desirable Triglyceride: [...] in patients with liver disease. Microalbumin, Random (Not ye t reviewed by provider) Interpretation: Performing Lab:[address] [phone] Notes/Report: Creatinine Urine 121.56 Microalbumin Urine 8.0 Microalbum/Creatinine Ratio Ur 6.5 <30 ug/mg cr Albumin/Creatinine Ratio Reference Ranges: Normal: < 30 ug/mg creatinine Microalbuminuria: 30 - 300 ug/mg creatinine Clinical Albuminuria: > 300 ug/mg creatinine Hemoglobin A1c (Not yet revi ewed by provider) Interpretation: Performing Lab:[facility], [address] [place] [phone] Notes/Report: Hemoglobin A1c % 5.6 <6.0 % [...] average glucose, using the formula of the I5C-Aebkefm Average Glucose study (ADAG), Diabetes Care, Vol.31,#8, 2007 UA ClnCatch+Micro w/rflx Cul t (Not yet reviewed by provider) Interpretation: Performing Lab:[facility], [address] [place] [phone] Notes/Report: Urine, Clean Catch Color Urine Yellow Appearance Urine Clear PH 6.5 5.0-9.0 Glucose Urine UA Negative Negative mg/dL Urine Blood Trace Negative Specific [place] - Urine 1.020 1.005-1.025 Urine Protein Negative [...] Date Provider Diagnosis Riley Gottlieb MD [address] [place] [phone] 11/01/2024 Riley Gottlieb Acquired hypothyroid ism E03.9 ; Prediabetes R73.09 and Pure hypercholesterolemia E78.00 Assessments Encounter Date Diagnosis (ICD Code) Assessment Notes Treatment Notes Treatment Clinical Notes Section Notes 11/01/2024 Acquired hypothyroid ism (ICD-10 - E03.9) 11/01/2024 Prediabetes (ICD-10 - R73.09) 11/01/2024 Pure hypercholesterolemia (ICD-10 - E78.00) Plan Of Treatment Pending Test Test Name Order Date Complete Blood Count Auto Diff 5 Comprehensive [place]. Panel Fast 5 Lipid Panel 11/01/2024 Microalbumin, Random 11/01/2024 Hemoglobin A1c 11/01/2024 UA ClnCatch+Micro w/rflx Cult 11/01/2024 Next Appt Details Provider Name:Riley Saunders ieangi, 11/08/2024 10:30:00 AM, [address], [address], [place], [place], [phone], Progress Notes * Katherine BOLANOS MDOB: [birth year] (74 yo F)Acc No.[id number]:11/01/2024 Progress Note Patient:?Katherine BOLANOS Provider:?Riley Gottlieb MD :1950???Age:74 Y???Sex:Female D ate:11/01/2024 Address:[id number], [place], [id number] Subjective: * Chief Complaints: * ???1. FASTING LABS. * Medical History:? Objective: * Vitals:? Assessment: * Assessment: 1.?Acquired hypothyroidism - E03.9 (Primary)???2.?Prediabetes - R73.09???3.?Pure hypercholesterolemia - E78.00??? Plan: * Treatment: 2.?Prediabetes?LAB: Complete Blood Count Auto Diff (Collection Date & Time - 11/01/2024 07:15 AM) ?LAB: Comprehensive [place]. Panel Fast (Collection Date & Time - 11/01/2024 07:15 AM) ?LAB: Lipid Panel (Collection Date & Time - 11/01/2024 07:15 AM) ?LAB: Microalbumin, Random (Collection Date & Time - 11/01/2024 07:15 AM) ?LAB: Hemoglobin A1c (Collection Date & Time - 11/01/2024 07:15 AM) ?LAB: UA ClnCatch+Micro w/rflx Cult (Collection Date & Time - 11/01/2024 07:15 AM) 3.?Pure hypercholesterolemia ?LAB: Complete Blood Count Auto Diff (Collection Date & Time - 11/01/2024 07:15 AM) ?LAB: Comprehensive [place]. Panel Fast (Collection Date & Time - 11/01/2024 07:15 AM) ?LAB: Lipid Panel (Collection Date & Time - 11/01/2024 07:15 AM) ?LAB: Microalbumin, Random (Collection Date & Time - 11/01/2024 07:15 AM) ?LAB: Hemoglobin A1c (Collection Date & Time - 11/01/2024 07:15 AM) ?LAB: UA ClnCatch+Micro w/rflx Cult (Collection Date & Time - 11/01/2024 07:15 AM) * Procedure Codes:?44210 VENIP UNCT, ROUTINE* * * The named appointment provid er may or may not be the originator of this progress note, and it is not deemed complete until electronically signed by the appointment provider. Sign off status: Pending * Provider:?Riley Gottlieb MD Date:?0 11/01/2024 Generated for Catrachito ruzi/Hanh/Marianaitting on:?11/01/2024 11:55 AM EDT
== END 2024-11-01 10:10 | disposition home or self-care (01) ==
LOC: HO.LNP 10:09
PROVIDERS: Visit Provider Internal Medicine
DX: E03.9 Hypothyroidism, unspecified (principal); R73.03 Prediabetes; E78.00 Pure hypercholesterolemia, unspecified
CPT/HCPCS: 80053; 80061; 81001; 82043; 82570; 83036; 85025

== ENCOUNTER 2024-12-16 14:01 | Outpatient (REF) | payer MEDICARE, OTHER, SELFPAY ==
[2024-12-16 14:44] LABS: TSH reflex Free T4 13.01 uIU/mL (0.32-4.0)
[2024-12-16 15:16] LABS: Free T4 (Free Thyroxine) 0.85 ng/dL (0.71-1.85)
== END 2024-12-16 14:02 | disposition home or self-care (01) ==
LOC: HO.LNP 14:01
PROVIDERS: Visit Provider Internal Medicine
DX: E03.9 Hypothyroidism, unspecified (principal)
CPT/HCPCS: 84439; 84443

== ENCOUNTER 2025-04-21 10:56 | Outpatient (REF) | payer MEDICARE, OTHER, SELFPAY ==
--- OUTSIDE RECORDS SUMMARY | 2024-05-19 13:00 | XMS_ITS ---
Author Organization Riley Gottlieb MD Address [address] [place] [phone] Care Team Providers Care Refined Syrup Operator Name Role Phone Riley Gottlieb Primary Care Provider Allergies No Known Allergies REASON FOR VISIT 6 MO F/U Encounters Encounter Location Date Provider Diagnosis Riley Gottlieb MD [address] [place] [address] [address] [place] [phone] 05/19/2024 Riley Gottlieb Plan Of Treatment Next Appt Details Provider Name:Riley neumann, 06/16/2025 08:15:00 AM, [address] [place] [address], [place] [address], [place], [place], [phone], Provider Name:Riley neumann, 12/12/2025 07:45:00 AM, [address] [place] [address], [address], [phone], Provider Name:Riley neumann, 12/19/2025 11:00:00 AM, [address], [address], [place], [phone], Progress Notes * Katherine BOLANOS MDOB: [birth year] (74 yo F)Acc No.[id number]:05/19/2024 Progress Notes Patient: Katherine BLANKENSHIP Provider: Tyron Gottlieb MD :1950 A ge:74 Y S ex:Female Date:05/19/2024 Address:[place] [address], [facility], [id number] Subjective: * Chief Complaints: * 1 . 6 MO F/U. * ROS: G eneral/Constitutional: Denies C hills. D enies F atigue. D enies F ever. D enies H eadache. R espiratory: Denies C ough. D enies S hortness of breath at rest. D enies S hortness of breath with exertion. G astrointestinal: Denies D iarrhea. D enies N ausea. * Medical History: H ematuria work up 2003, Colonoscopy refused again 2016 2022 thinking about it refused 2023, Low HDL (under 40), Spoke to rediologist who read mri and [facility]. * Allergies: N .K.D.A. Objective: * Vitals: * P ast Orders: L ab:Liver Panel (Order Date - 05/03/2024) (Collection Date & Time - 05/03/2024) Value Reference Range Bilirubin Total 0.4 0.0-1.0 - mg/dL Bilirubin Direct 0.2 0.0-0.5 - mg/dL Aspartate Amino Transferase 18 5-31 - U/L Alanine Aminotransferase 19 0-31 - U/L Total Protein 7.3 6.5-8.0 - g/dL Albumin Level 4.1 3.5-5.0 - g/dL Alkaline Phosphatase 122 H 39-117 - U/L L ab:Glucose Fasting (Order Date - 05/03/2024) (Collection Date & Time - 05/03/2024) Value Reference Range Glucose Fasting 111 H 60-99 - mg/dL L ab:Lipid Panel with Reflex (Order Date - 05/03/2024) (Collection Date & Time - 05/03/2024) Value Reference Range Triglycerides 110 <150 - mg/dL Cholesterol 126 <200 - mg/dL LDL Cholesterol Calculated 68 <100 - mg/dL HDL Cholesterol 36 L >40 - mg/dL L ab:Hemoglobin A1c (Order Date - 05/03/2024) (Collection Date & Time - 05/03/2024) Value Reference Range Hemoglobin A1c % 5.6 <6.0 - % Estimated Average Glucose 114 - mg/dL Assessment: Plan: * Treatment: * * The named appointment provid er may or may not be the originator of this progress note, and it is not deemed complete until electronically signed by the appointment provider. Sign off status: Pending * Provider: Tyron Gottlieb MD Date: 0 05/19/2024 Generated for Catrachito ruiz/Hanh/Marianaitting on: 0 04/21/2025 11:37 AM EDT
--- OUTSIDE RECORDS SUMMARY | 2024-11-01 03:15 | XMS_ITS ---
Author Organization Riley Gottlieb MD Address [address] [place] [phone] Care Team Providers Care Automotive Machinist Name Role Phone Riley Gottlieb Primary Care Provider [phone] Results Component Value Reference Range Notes Complete Blood Count Auto Di ff Reviewed date:11/01/2024 12:39:13 PM Interpretation: Performing Lab:[facility], [address] [place] [phone] Notes/Report: White Blood Count 9.0 4.8-10.8 X10*3/uL [...] NRBC Abs Auto 0.000 0.0-0.012 X10*3/uL Comprehensive [place]. Panel Fa st Reviewed date:11/01/2024 12:32:37 PM Interpretation: Performing Lab:[facility], [address] [place] [phone] Notes/Report: Sodium 142 135-145 mmol/L Potassium 4.2 [...] Panel Reviewed date:11/01/2024 12:12:34 PM Interpretation: Performing Lab:[facility], [address] [place] [phone] Notes/Report: Triglycerides 110 <150 mg/dL Desirable Triglyceride: [...] Random Reviewed date:11/01/2024 12:12:17 PM Interpretation: Performing Lab:[facility], [address] [place] [phone] Notes/Report: Creatinine Urine 121.56 Microalbumin Urine 8.0 Microalbum/Creatinine Ratio Ur 6.5 <30 ug/mg cr Albumin/Creatinine Ratio Reference Ranges: Normal: < 30 ug/mg creatinine Microalbuminuria: 30 - 300 ug/mg creatinine Clinical Albuminuria: > 300 ug/mg creatinine Hemoglobin A1c Reviewed date:11/01/2024 12:12:09 PM Interpretation: Performing Lab:[address] [phone] Notes/Report: Hemoglobin A1c % 5.6 <6.0 % [...] average glucose, using the formula of the L0S-Gteutlq Average Glucose study (ADAG), Diabetes Care, Vol.31,#8, 2007 UA ClnCatch+Micro w/rflx Cul t Reviewed date:11/01/2024 12:39:42 PM Interpretation: Performing Lab:[facility], [address] [place] [phone] Notes/Report: Urine, Clean Catch Color Urine Yellow Appearance Urine Clear PH 6.5 5.0-9.0 Glucose Urine UA Negative Negative mg/dL Urine Blood Trace Negative Specific [place] - Urine 1.020 1.005-1.025 Urine Protein Negative [...] Location Date Provider Diagnosis Riley Gottlieb MD [address] [place] [address] [place] [phone] 11/01/2024 Riley Gottlieb Acquired hypothyroid ism E03.9 ; Prediabetes R73.09 and Pure hypercholesterolemia E78.00 Assessments Encounter Date Diagnosis (ICD Code) Assessment Notes Treatment Notes Treatment Clinical Notes Section Notes 11/01/2024 Acquired hypothyroid ism (ICD-10 - E03.9) 11/01/2024 Prediabetes (ICD-10 - R73.09) 11/01/2024 Pure hypercholesterolemia (ICD-10 - E78.00) Plan Of Treatment Next Appt Details Provider Name:Riley neumann, 06/16/2025 08:15:00 AM, [address] [place] [address], [address], [phone], Provider Name:Riley neumann, 12/12/2025 07:45:00 AM, [address] [place] [address], [address], [phone], Provider Name:Riley neumann, 12/19/2025 11:00:00 AM, [address] [facility], [address], [place], [place], [phone], Progress Notes * Katherine BOLANOS MDOB: [birth year] (74 yo F)Acc No.[id number]:11/01/2024 Progress Note Patient: Katherine BLANKENSHIP Provider: Tyron Gottlieb MD :1950 A ge:74 Y S ex:Female Date:11/01/2024 Address:[place] [address], [facility], [facility] Subjective: * Chief Complaints: * 1 . FASTING LABS. * Medical History: Objective: * Vitals: Assessment: * Assessment: 1. A cquired hypothyroidism - E03.9 (Primary) 2 . P rediabetes - R73.09? 3. P ure hypercholesterolemia - E78.00 Plan: * Treatment: 2. P rediabetes L AB: Complete Blood Count Auto Diff (Collection Date & Time - 11/01/2024 07:15 AM) L AB: Comprehensive [place]. Panel Fast (Collection Date & Time - [...] - 11/01/2024 07:15 AM) L AB: Comprehensive [place]. Panel Fast (Collection Date & Time - [...] MD Date: 0 11/01/2024 Generated for Catrachito ruiz/Hanh/Marianaitting on: 0 04/21/2025 11:37 AM EDT
--- OUTSIDE RECORDS SUMMARY | 2024-12-16 07:00 | XMS_ITS ---
Author Organization Riley Gottlieb MD Address [address] [place] [phone] Care Team Providers Care Certified Nursing Assistant Name Role Phone Riley Gottlieb Primary Care Provider [phone] Allergies No Known Allergies Results Component Value Reference Range Notes TSH reflex Free T4 Reviewed date:12/16/2024 03:48:03 PM Interpretation: Performing Lab:[facility], [address] [place] [phone] Notes/Report: TSH reflex Free T4 13.01 0.32-4.0 uIU/mL REASON FOR VISIT review labs, Accompanied by Medications Medication SIG (Take, Route, Frequency, Duration) Notes Start Date End Date Status Aspir-Low 81 MG 1 tablet Orally Once a day for 30 day(s) 07/02/2023 Active Prevagen 10 MG as directed Orally Active Levothyroxine Sodium 137 MCG TAKE 1 TABLET BY MOUTH EVERY DAY IN THE MORNING ON EMPTY STOMACH Not-Taking Atorvastatin Calcium 40 MG TAKE 1 TABLET BY MOUTH EVERY DAY Active Donepezil HCl 5 MG TAKE 1 TABLET BY SID TH EVERY DAY AT BEDTIME for 90 Active Levothyroxine Sodium 100 MCG TAKE 1 TABLET BY MOUTH EVERY DAY Active Social History Tobacco Use: Social History Observation Description Date Details (start date - stop date) Never Smoker NA - NA Tobacco Use/Smoking Question Answer Notes Patient is a nonsmoker Additional Findings: Tobacco Non-User Cu rrent non-smoker, currently using no form of tobacco Alcohol Screen Question Answer Notes Did you have a drink contain ing alcohol in the past year? Yes How often did you have a dri nk containing alcohol in the past year? Monthly or less (1 point) How many drinks did you have on a typical day when you were drinking in the past year? 1 or 2 drinks (0 point) How often did you have 6 or more drinks on one occasion in the past year? Never (0 point) Points 1 Interpretation Negative Vital Signs Blood pressure systolic 142 mm Hg 12/17/19 25 Blood pressure diastolic 70 mm Hg 025 Height 62 in 12/16/2024 Weight 206 lbs 12/16/2024 BMI 37.67 kg/m2 12/16/2024 weight is down 4 pounds [facility] 11-06-23 Encounters Encounter Location Date Provider Diagnosis Riley Gottlieb MD [address] [place] [address] [place] [phone] 12/16/2024 Riley Gottlieb Acquired hypothyroid ism E03.9 ; Prediabetes R73.09 ; Pure hypercholesterolemia E78.00 and Depression screening Z13.31 Assessments Encounter Date Diagnosis (ICD Code) Assessment Notes Treatment Notes Treatment Clinical Notes Section Notes 12/16/2024 Acquired hypothyroid ism (ICD-10 - E03.9) stable, will continue current regiment 12/16/2024 Prediabetes (ICD-10 - R73.09) well controlled, no need for medication at this time 12/16/2024 Pure hypercholesterolemia (ICD-10 - E78.00) doing well, will continue current regiment 12/16/2024 Depression screening (ICD-10 - Z13.31) negative screen Plan Of Treatment Medication Medication Name Sig Start Date Stop Date Notes Atorvastatin Calcium 40 MG TAKE 1 TABLET BY MOUTH EVERY DAY Levothyroxine Sodium 100 MCG TAKE 1 TABL ET BY MOUTH EVERY DAY Treatment Notes Assessment Notes Acquired hypothyroidism stable, will con tinue current regiment Prediabetes well controlled, no need for medication at this time Pure hypercholesterolemia doing well, wi ll continue current regiment Depression screening negative screen Next Appt Details Follow Up: 1 Year, Reason: Provider Name:Riley Saunders ier, 06/16/2025 08:15:00 AM, [address] [place] [address], Suite [facility], [place], [place], [phone], Provider Name:Riley Saunders ier, 12/12/2025 07:45:00 AM, [address] [place] [address], [address], [place], [place], [phone], Provider Name:Riley Saunders ier, 12/19/2025 11:00:00 AM, [address] [place] [address], [address] [address], [place], [place], [phone], Progress Notes * Katherine BOLANOS MDOB: [birth year] (74 yo F)Acc No.[id number]:12/16/2024 Patient: Katherine BLANEKNSHIP Provider: Tyron Gottlieb MD :1950 A ge:74 Y S ex:Female Date:12/16/2024 Address:[address] [address], [facility] [id number] Subjective: * Chief Complaints: * R eview labsAccompanied by * HPI: D epression Screening: PHQ-9 L ittle interest or pleasure in doing things N ot at all, F eeling down, depressed, or hopeless N ot at all, T rouble falling or staying asleep, or sleeping too much N ot at all, F eeling tired or having little energy N ot at all, P oor appetite or overeating N ot at all, F eeling bad about yourself or that you are a failure, or have let yourself or your family down N ot at all, T rouble concentrating on things, such as reading the newspaper or watching television N ot at all, M oving or speaking so slowly that other people could have noticed; or the opposite, being so fidgety or restless that you have been moving around a lot more than usual N ot at all, T houghts that you would be better off or of hurting yourself in some way N ot at all, T otal Score 0 . I nterpretation and Intervention D epression Screening Findings N egative, F ollow-Up for Depression : review of PHQ-9 found negative result, no follow-up needed. C ommunication Needs: Communication Needs D oes the patient have a hearing impairment N o, D oes the patient have a vision impairment? Y es, I f yes, what is the vision impairment? G lasses, D oes the patient have a cognition impairment? Y es. F all Risk: History H ave you had any falls with injury in the past year? N o, H ave you had two or more falls in the past year? N o. S SIRI Questions: SDOH Questions I n the past year have you been worried about losing housing? N o, I n the past year have you or any family members you live with been unable to get any of the following when it was really needed? Check all that apply: N one. S ymptom(s): patient is a 74 yo female here for review of recent labs and follow up of chronoic issues. * ROS: G eneral/Constitutional: Change in appetite d enies. C hills d enies. F ever d enies. O phthalmologic: Blurred vision d enies. D ischarge d enies. P ain d enies. E NT: Decreased hearing d enies. S ore throat d enies.?Swollen glands d enies. E ndocrine: Cold intolerance d enies. E xcessive thirst d enies. H eat intolerance d enies. W eight loss d enies. R espiratory: Cough d enies. S hortness of breath at rest d enies. S hortness of breath with exertion d enies. W heezing d enies. C ardiovascular: Chest pain at rest d enies. C hest pain with exertion?denies. I rregular heartbeat d enies. S hortness of breath d enies. ? G astrointestinal: Abdominal pain d enies. C hange in bowel habits d enies. D iarrhea d enies. N ausea d enies. R ectal bleeding d enies. V omiting d enies . G enitourinary: Blood in urine d enies. D ifficulty urinating d enies. F requent urination d enies. U rinary incontinence D enies. M usculoskeletal: Painful joints d enies. W eakness d enies. ? S kin: Dry skin d enies. I tching d enies. D enies?Mole(s), changes in moles, new moles or any lesions of concern. D enies P hotosensitivity. R rachel d enies. N eurologic: Dizziness d enies. F ainting d enies. H eadache?denies. * Medical History: * Surgical History: * Hospitalization/Major Diagno stic Procedure: * Family History: F ather: 74 yrs, diagnosed with Cancer. M other: alive 90 yrs. 1 brother(s) . 1 son(s) , 2 daughter(s) . . Father- brain cancer, Denies mental health/substance abuse family history, Denies mental health/substance abuse family history Mother has Dementia, No pertinent family medical history. * Social History: T obacco Use: T obacco Use/Smoking P atient is a n onsmoker, A dditional Findings: Tobacco Non-User C urrent non-smoker, currently using no form of tobacco. D rugs/Alcohol: A lcohol Screen D id you have a drink containing alcohol in the past year? Y es, H ow often did you have a drink containing alcohol in the past year? M onthly or less (1 point), H ow many drinks did you have on a typical day when you were drinking in the past year? 1 or 2 drinks (0 point), H ow often did you have 6 or more drinks on one occasion in the past year? N ever (0 point), P oints 1 , I nterpretation N egative. M iscellaneous: C affeine: yes, frequency:, 2-3 cups per day. Children: yes, 3 Children. Community involvements: yes. Exercise: no. Housing: owning. Living with: spouse. Marital status: . Occupation: weeks/months/years, retired. Pets: none. Travel outside of the [place]: yesTheresa. * Medications: T akingAspir-Low 81 MG Tablet Delayed Release 1 tablet Orally Once a day Prevagen 10 MG Capsule as directed Orally Levothyroxine Sodium 100 MCG Tablet TAKE 1 TABLET BY MOUTH EVERY DAY Atorvastatin Calcium 40 MG Tablet TAKE 1 TABLET BY MOUTH EVERY DAY Donepezil HCl 5 MG Tablet TAKE 1 TABLET BY MOUTH EVERY DAY AT BEDTIME Taking Aspir-Low 81 MG Tablet Delayed Release 1 tablet Orally Once a day Taking Prevagen 10 MG Capsule as directed Orally Taking Levothyroxine Sodium 100 MCG Tablet TAKE 1 TABLET BY MOUTH EVERY DAY Taking Atorvastatin Calcium 40 MG Tablet TAKE 1 TABLET BY MOUTH EVERY DAY Taking Donepezil HCl 5 MG Tablet TAKE 1 TABLET BY MOUTH EVERY DAY AT BEDTIME Not-Taking/PRNLevothyroxine Sodium 137 MCG Tablet TAKE 1 TABLET BY MOUTH EVERY DAY IN THE MORNING ON EMPTY STOMACH Medication List reviewed and reconciled with the patientNot-Taking/PRN Levothyroxine Sodium 137 MCG Tablet TAKE 1 TABLET BY MOUTH EVERY DAY IN THE MORNING ON EMPTY STOMACH Medication List reviewed and reconciled with the patient * Allergies: N .K.D.A.yes[Allergies Verified] Objective: * Vitals: H t: 62, Wt: 206, BMI:37.67, BP:142/70, Repeat BP:120/78, Wt-k.44. weight is down 4 pounds since 11-06-23. * P ast Orders: L ab:Comprehensive [place]. Panel Fast (Order Date - 11/01/2024) (Collection Date & Time - 11/01/2024 07:15 AM) Value Reference Range Sodium 142 135-145 - mmol/L Bilirubin Total 0.5 0.0-1.0 - mg/dL Aspartate Amino Transferase 28 5-31 - U/L Alanine Aminotransferase 27 0-31 - U/L Total Protein 8.1 H 6.5-8.0 - g/dL Albumin Level 4.4 3.5-5.0 - g/dL Alkaline Phosphatase 113 39-117 - U/L Potassium 4.2 3.3-5.1 - mmol/L Chloride 105 96-108 - mmol/L Carbon Dioxide 31 H 22-29 - mmol/L Anion Gap 10 L 12-20 - Blood Urea Nitrogen 15 9-16 - mg/dL Creatinine 0.91 0.5-1.4 - mg/dL Estimated Glomerular Filt Rate > 60 - Glucose Fasting 103 H 60-99 - mg/dL Calcium 9.7 8.4-10.2 - mg/dL L ab:Lipid Panel (Order Date - 11/01/2024) (Collection Date & Time - 11/01/2024 07:15 AM) Value Reference Range Triglycerides 110 <150 - mg/dL Cholesterol 159 <200 - mg/dL LDL Cholesterol Calculated 86 <100 - mg/dL HDL Cholesterol 51 >40 - mg/dL L ab:Microalbumin, Random (Order Date 11/01/2024) (Collection Date & Time - 11/01/2024 07:15 AM) Value Reference Range Creatinine Urine 121.56 - mg/dL Microalbumin Urine 8.0 - mg/L Microalbum Creatinine Ratio Ur 6.5 <30 - ug/ mg cr L ab:Hemoglobin A1c (Order Date 11/01/2024) (Collection Date & Time - 11/01/2024 07:15 AM) Value Reference Range Hemoglobin A1c % 5.6 <6.0 - % Estimated Average Glucose 114 - mg/dL L ab:UA ClnCatch+Micro w/rflx Cult (Order Date 11/01/2024) (Collection Date & Time - 11/01/2024 07:15 AM) Value Reference Range Color Urine Yellow - Appearance Urine Clear - PH 6.5 5.0-9.0 - Glucose Urine UA Negative Negative - mg/dL Urine Blood Trace A Negative - Specific [place] - Urine 1.020 1.005-1.025 - Urine Protein Negative Neg-Trace - mg/dL Urine Ketones Negative Negative - mg/dL Nitrite Urine Negative Negative - Leukocyte Esterase Urine Negative Negative - RBC Urine 0-2 0-2 - /HPF WBC Urine 0-5 0-5 - /HPF Squamous Epithelial Cell Urine 3-5 0-2 - /HP F Bacteria Urine Trace None Seen - Hyaline Casts Urine 0-2 0-2 - /LPF Other Crystals Urine Present - L ab:Complete Blood Count Auto Diff (Order Date 11/01/2024) (Collection Date & Time - 11/01/2024 07:15 AM) Value Reference Range White Blood Count 9.0 4.8-10.8 - X10*3/uL Red Blood Count 4.73 4.20-5.50 - X10*6/uL Hemoglobin 14.3 12.0-16.0 - g/dl Hematocrit 44.8 37.0-47.0 - % Mean Corpuscular Volume 94.7 80.0-98.0 - fL Mean Corpuscular Hemoglobin 30.2 27.0-33.0 - pg Mean Corpuscular HGB Conc 31.9 31.0-35.0 - g/ dl Red Cell Distribution Width 13.7 11.0-16.0 - % Platelet Count 291 160-400 - X10*3/uL Mean Platelet Volume 10.4 9.4-12.3 - fL Neutrophils Percent Auto 60.7 45-73 - % Imm Gran Pct Auto 0.4 0.0-0.4 - % Lymphocytes Percent Auto 26.4 20-40 - % Monocytes Percent Auto 7.6 2-11 - % Eosinophils Percent Auto 4.1 H 0-4 - % Basophils Percent Auto 0.8 0-2 - % NRBC Pct Auto 0.0 0.0-0.2 - /100WBC Neutrophils Absolute Auto 5.5 2.0-8.3 - x10* 3/uL Imm Gran Abs Auto 0.04 H 0.00-0.03 - X10*3/uL Lymphocytes Absolute Auto 2.4 1.2-4.9 - X10* 3/uL Monocytes Absolute Auto 0.7 0.1-1.2 - X10*3/ uL Eosinophils Absolute Auto 0.4 0.0-0.4 - X10* 3/uL Basophils Absolute Auto 0.1 0.0-0.2 - X10*3/ uL NRBC Abs Auto 0.000 0.0-0.012 - X10*3/uL * Examination: G eneral Examination: GENERAL APPEARANCE: w ell developed, well nourished, in no acute distress. HEAD: n ormocephalic, atraumatic. EYES: p upils equal, round, reactive to light and accommodation, sclera non-icteric. EARS: n ormal. ORAL CAVITY: m ucosa moist. THROAT: c lear. NECK/THYROID: n tonja supple, full range of motion, no cervical lymphadenopathy, no bruits. SKIN: w arm and dry, no suspicious lesions. HEART: r egular rate and rhythm, S1, S2 normal, no murmurs.? LUNGS: c lear to auscultation bilaterally. BREASTS: N o mass, no lump. ABDOMEN: s oft, nontender, nondistended, bowel sounds present, normal, no organomegaly , no masses palpable. RECTAL EXAM: d one by pile driver operator. FEMALE GENITOURINARY: d one by pile driver operator. EXTREMITIES: n o clubbing, cyanosis, or edema. NEUROLOGIC: n onfocal, motor strength normal upper and lower extremities, sensory exam intact. Assessment: * Assessment: 1. A cquired hypothyroidism - E03.9 (Primary) 2 . P rediabetes - R73.09? 3. P ure hypercholesterolemia - E78.00 4 . D epression screening - Z13.31 Plan: * Treatment: 2. P rediabetes Notes: well controlled, no need for medication at this time 3. P ure hypercholesterolemia Continue Atorvastatin Calcium Tablet, 40 MG, TAKE 1 TABLET BY MOUTH EVERY DAY. Notes: doing well, will continue current regiment 4. D epression screening Notes: negative screen * Procedure Codes: 3 6415 VENIPUNCT, ROUTINE* * Follow Up: 1 Year * * Sign off status: Completed true * Provider: Tyron Gottlieb MD Date: 0 12/16/2024 Generated for Catrachito ruiz/Hanh/Marianaitting on: 0 04/21/2025 11:37 AM EDT History and Physical Notes * HPI (History of Present Illness) Category Sub-Category Detail Notes Category Not es Symptom(s) patient is a 74 yo female here for review of recent labs and follow up of chronoic issues Depression Screening PHQ-9 Little inte rest or pleasure in doing things: Not at all Feeling down, depressed, or hopeless: No t at all Trouble falling or staying asleep, or sl eeping too much: Not at all Feeling tired or having little energy: N ot at all Poor appetite or overeating: Not at all Feeling bad about yourself o r that you are a failure, or have let yourself or your family down: Not at all Trouble concentrating on thi ngs, such as reading the newspaper or watching television: Not at all Moving or speaking so slowly that other people could have noticed; or the opposite, being so fidgety or restless that you have been moving around a lot more than usual: Not at all Thoughts that you would be b frederick off or of hurting yourself in some way: Not at all Total Score: 0 Interpretation and Intervention Depression Isa lofton Findings: Negative Follow-Up for Depression: : review of PH Q-9 found negative result, no follow-up needed SDOH Questions SDOH Questions In the past year have you been worried about losing housing?: No In the past year have you or any family members you live with been unable to get any of the following when it was really needed? Check all that apply:: None Fall Risk History Have you had any falls with injury i n the past year?: No Have you had two or more falls in the year?: No Communication Needs Communication Needs Does the patient have a hearing impairment: No Does the patient have a vision impairmen t?: Yes If yes, what is the vision impairment?: Glasses Does the patient have a cognition impair ment?: Yes Examination Category Sub-Category Detail Notes Category Not es General Examination GENERAL APPEARANCE: well dev eloped, well nourished, in no acute distress HEAD: normocephalic, atrau matic EYES: pupils equal, round, reactive to light and accommodation, sclera non-icteric EARS: normal THROAT: clear NECK/THYROID: neck supple, full ra nge of motion, no cervical lymphadenopathy, no bruits HEART: regular rate and rhy thm, S1, S2 normal, no murmurs LUNGS: clear to auscultatio n bilaterally ABDOMEN: soft, nontender, non distended, bowel sounds present, normal, no organomegaly , no masses palpable NEUROLOGIC: nonfocal, motor stre ngth normal upper and lower extremities, sensory exam intact SKIN: warm and dry, no torie picious lesions EXTREMITIES: no clubbing, cyanosi s, or edema BREASTS: No mass, no lump RECTAL EXAM: done by pile driver operator FEMALE GENITOURINARY: done by pile driver operator ORAL CAVITY: mucosa moist
--- OUTSIDE RECORDS SUMMARY | 2024-12-23 10:35 | XMS_ITS ---
Author Organization Riley Gottlieb MD Address [address] [place] [phone] Care Team Providers Care Industrial Machine Operator Name Role Phone Riley Gottlieb Primary Care Provider REASON FOR VISIT thyroid med Medications Medication SIG (Take, Route, Frequency, Duration) Notes Start Date End Date Status Levothyroxine Sodium 125 MCG TAKE 1 TABL ET BY MOUTH EVERY DAY Orally Once a day for 90 days Active Encounters Encounter Location Date Provider Diagnosis Riley Gottlieb MD [address] [place] [phone] 12/23/2024 Riley Gottlieb Acquired hypothyroidism E03.9 Assessments Encounter Date Diagnosis (ICD Code) Assessment Notes Treatment Notes Treatment Clinical Notes Section Notes 12/23/2024 Acquired hypothyroidism (ICD-10 - E03.9) Plan Of Treatment Medication Medication Name Sig Start Date Stop Date Notes Levothyroxine Sodium 125 MCG TAKE 1 TABL ET BY MOUTH EVERY DAY Orally Once a day for 90 days Next Appt Details Provider Name:Riley neumann, 06/16/2025 08:15:00 AM, [address] [place] [address], [address], [place], [place], [phone], Provider Name:Riley Saunders ier, 12/12/2025 07:45:00 AM, [address] [place] [address], Suite [facility], [place], [place], [phone], Provider Name:Riley Saunders ier, 12/19/2025 11:00:00 AM, [address] [place] [address], Suite [facility], [place], [place], [phone], Progress Notes * Katherine BOLANOS MDOB: [birth year] (74 yo F)Acc No.[id number]:12/23/2024 Patient: Shyla Katherine RAMON :1950 A ge:74 Y S ex:Female Address:[address] [address], [place] [address] * Refills Continue Levothyroxine Sodium Tablet, 125 MCG, Orally, 90, TAKE 1 TABLET BY MOUTH EVERY DAY, Once a day, 90 days, Refills=3 * true * Date: Generated for Catrachito ruiz/Hanh/Marianaitting on: 0 04/21/2025 11:36 AM EDT
--- OUTSIDE RECORDS SUMMARY | 2025-04-21 04:30 | XMS_ITS ---
Author Organization Riley Gottlieb MD Address [address] [place] [phone] Care Team Providers Care Molder Feeder Name Role Phone Riley Gottlieb Primary Care Provider REASON FOR VISIT 2 month repeat TSH Encounters Encounter Location Date Provider Diagnosis Riley Gottlieb MD [address] [place] [phone] 04/21/2025 Riley Gottlieb Acquired hypothyroidism E03.9 Assessments Encounter Date Diagnosis (ICD Code) Assessment Notes Treatment Notes Treatment Clinical Notes Section Notes 04/21/2025 Acquired hypothyroidism (ICD-10 - E03.9) Plan Of Treatment Pending Test Test Name Order Date TSH reflex Free T4 04/21/2025 Next Appt Details Provider Name:Riley neumann, 06/16/2025 08:15:00 AM, [address] [facility], Suite [facility], [place], [place], [phone], Provider Name:Riley neumann, 12/12/2025 07:45:00 AM, [address], [address], [place], [place], [phone], Provider Name:Riley Saunders ier, 12/19/2025 11:00:00 AM, [address] [facility] [address], [address], [place], [place], [phone], Progress Notes * Katherine BOLANOS MDOB: [birth year] (74 yo F)Acc No.[id number]:04/21/2025 Progress Note Patient: Katherine BLANKENSHIP Provider: Tyron Gottlieb MD :1950 A ge:74 Y S ex:Female Date:04/21/2025 Address:[address] [address], [facility], [id number] Subjective: * Chief Complaints: * 1 . 2 month repeat TSH. * Medical History: Objective: * Vitals: Assessment: * Assessment: 1. A cquired hypothyroidism - E03.9 (Primary) Plan: * Treatment: * Procedure Codes: 3 6415 VENIPUNCT, ROUTINE* * * The named appointment provid er may or may not be the originator of this progress note, and it is not deemed complete until electronically signed by the appointment provider. Sign off status: Pending * Provider: Tyron Gottlieb MD Date: 04/21/2025 Generated for Catrachito ruiz/Hanh/eTjaniesmitting on: 04/21/2025 11:36 AM EDT
--- OUTSIDE RECORDS SUMMARY | 2025-04-21 11:36 | XMS_ITS | Patient Health Record ---
Author Organization Riley Gottlieb MD Address [address] [place], [place] [phone] Care Team Providers Care Wharf Attendant Name Role Phone Riley Gottlieb Primary Care Provider Allergies No Known Allergies Results Component Value Reference Range Notes Liver Panel Reviewed date:05/03/2024 06:00:11 PM Interpretation: Performing Lab:[facility], [address] [place] [phone] Notes/Report: Bilirubin Total 0.4 0.0-1.0 mg/dL Bilirubin Direct 0.2 0.0-0.5 mg/dL Aspartate Amino Transferase 18 5-31 U/L Alanine Aminotransferase 19 0-31 U/L Total Protein 7.3 6.5-8.0 g/dL Albumin Level 4.1 3.5-5.0 g/dL Alkaline Phosphatase 122 39-117 U/L Glucose Fasting Reviewed date:05/03/2024 05:59:59 PM Interpretation: Performing Lab:[facility], [address] [place] [phone] Notes/Report: Glucose Fasting 111 60-99 mg/dL A fasting glucose from 100-125 mg/dl is considered impaired (pre-diabetes). Lipid Panel with Reflex Reviewed date:05/03/2024 06:01:38 PM Interpretation: Performing Lab:[facility], [address] [place] [phone] Notes/Report: Triglycerides 110 <150 mg/dL Desirable Triglyceride: [...] A1c Reviewed date:05/03/2024 05:59:50 PM Interpretation: Performing Lab:[facility], [address] [place] [phone] Notes/Report: Hemoglobin A1c % 5.6 <6.0 % [...] average glucose, using the formula of the C4E-Ropkzya Average Glucose study (ADAG), Diabetes Care, Vol.31,#8, Mar. 2007 Complete Blood Count Auto Di ff Reviewed date:11/01/2024 12:39:13 PM Interpretation: Performing Lab:[facility], [address] [place] [phone] Notes/Report: White Blood Count 9.0 4.8-10.8 X10*3/uL [...] NRBC Abs Auto 0.000 0.0-0.012 X10*3/uL Comprehensive [place]. Panel Fa st Reviewed date:11/01/2024 12:32:37 PM Interpretation: Performing Lab:[facility], [address] [place] [phone] Notes/Report: Sodium 142 135-145 mmol/L Potassium 4.2 [...] Panel Reviewed date:11/01/2024 12:12:34 PM Interpretation: Performing Lab:[address] [phone] Notes/Report: Triglycerides 110 <150 mg/dL Desirable Triglyceride: [...] Random Reviewed date:11/01/2024 12:12:17 PM Interpretation: Performing Lab:[address] [phone] Notes/Report: Creatinine Urine 121.56 Microalbumin Urine 8.0 Microalbum/Creatinine Ratio Ur 6.5 <30 ug/mg cr Albumin/Creatinine Ratio Reference Ranges: Normal: < 30 ug/mg creatinine Microalbuminuria: 30 - 300 ug/mg creatinine Clinical Albuminuria: > 300 ug/mg creatinine Hemoglobin A1c Reviewed date:11/01/2024 12:12:09 PM Interpretation: Performing Lab:[facility], [address] [place] [phone] Notes/Report: Hemoglobin A1c % 5.6 <6.0 % [...] average glucose, using the formula of the J7G-Iridybu Average Glucose study (ADAG), Diabetes Care, Vol.31,#8, 2007 UA ClnCatch+Micro w/rflx Cul t Reviewed date:11/01/2024 12:39:42 PM Interpretation: Performing Lab:[facility], [address] [place] [phone] Notes/Report: Urine, Clean Catch Color Urine Yellow Appearance Urine Clear PH 6.5 5.0-9.0 Glucose Urine UA Negative Negative mg/dL Urine Blood Trace Negative Specific [place] - Urine 1.020 1.005-1.025 Urine Protein Negative Neg-Trace mg/dL Urine Ketones Negative Negative mg/dL Nitrite Urine Negative Negative Leukocyte Esterase Urine Negative Negative RBC Urine 0-2 0-2 /HPF WBC Urine 0-5 0-5 /HPF Squamous Epithelial Cell Urine 3-5 0-2 /HPF Other Crystals Urine Present Talc no tete Bacteria Urine Trace None Seen Hyaline Casts Urine 0-2 0-2 /LPF TSH reflex Free T4 Reviewed date:12/16/2024 03:48:03 PM Interpretation: Performing Lab:[facility], [address] [place] [phone] Notes/Report: TSH reflex Free T4 13.01 0.32-4.0 uIU/mL Deandra Chairez Reviewed date:05/03/2024 12:42:39 PM Interpretation: Performing Lab:[facility], [address] [place] [phone] Notes/Report: Deandra Chairez See Note Specimen held untested for 24 hours; Call to request Chemistry testing. Deandra Chairez Reviewed date:11/01/2024 12:11:17 PM Interpretation: Performing Lab:[facility], [address] [place] [phone] Notes/Report: Hold Contreras See Note Specimen held untested for 24 hours; Call to request Chemistry testing. Free T4 (Free Thyroxine) Reviewed date:12/16/2024 03:34:27 PM Interpretation: Performing Lab:[facility], [address] [place] [phone] Notes/Report: Free T4 (Free Thyroxine) 0.85 0.71-1.85 ng/dL Hold Contreras Reviewed date:12/16/2024 03:34:35 PM Interpretation: Performing Lab:[facility], [address] [place] [phone] Notes/Report: Hold Contreras See Note Specimen held untested for 24 hours; Call to request Chemistry testing. Deandra Chairez (Not yet reviewed by provider) Interpretation: Performing Lab:[facility], [address] [place] [phone] Notes/Report: Deandra Chairez See Note Specimen held untested for 24 hours; Call to request Chemistry testing. Reason For Referral No Information Medications Medication SIG (Take, Route, Frequency, Duration) [...] AT BEDTIME for 90 Active Levothyroxine Sodium 125 MCG TAKE 1 TABLET BY MOUTH EVERY DAY Orally Once a day for 90 days Active Immunizations Vaccine Route Administration Date Status Comme nts Flu Vaccine Unknown 05/28/2009 Administered Flu Vaccine IM Intramuscular 06/06/2016 Administered pt wa s given the vaccine at [facility] in [place]. It was high dose flu TDaP IM Intramuscular 06/06/2016 Administered pt was given the vaccine at the [facility] in [place]. Fluarix Quadrivalent Unknown 06/17/2016 Administered CV S TDaP Unknown 06/17/2016 Administered [facility] Fluarix Quadrivalent IM Intramuscular 07/27/2017 Administe red Fluarix Quadrivalent IM Intramuscular 05/10/2018 Administe red Fluarix Quadrivalent IM Intramuscular 06/14/2019 Administe red Influenza High Dose IM Intramuscular 05/03/2020 Administer ed PPSV23 (Pnemovax) IM Intramuscular 07/26/2020 Administered SARS-COV-2 Pfizer Unknown 11/01/2020 Administered SARS-COV-2 Pfizer Unknown 11/22/2020 Administered Influenza High Dose IM Intramuscular 05/28/2021 Administer ed SARS-COV-2 Pfizer Unknown 07/05/2021 Administered SARS-COV-2 Moderna Unknown 12/18/2021 Administered Fluarix Quadrivalent IM Intramuscular 05/11/2023 Administe red SARS-COV-2 Pfizer Unknown 05/27/2023 Administered [facility] Influenza High Dose IM Intramuscular 05/03/2024 Administer ed SARS-COV-2 Pfizer Unknown 05/26/2024 Administered [facility] Flu Vaccine Unknown 06/12/2015 Refused Fluarix Quadrivalent Unknown 07/21/2017 Refused Prevnar 13 Unknown 02/07/2019 Refused Social History Tobacco Use: Social History Observation [...] Never (0 point) Points 1 Interpretation Negative Problems Problem Type SNOMED Code ICD Code Onset Dates Problem Status W/U Status Risk Notes Problem Bilateral tinnitus (1549957518212) Tinnitus, bilateral (H93.13) Active confirmed Problem Chronic sinusitis (04289030) Chronic sinusitis, unspecified (J32.9) Active confirmed Problem 81930105 Kidney stone (N20.0) Active confirmed Problem 616828730 Acquired hypothyroidism (E03.9) Active confirmed Problem 6269390 Prediabetes (R73.09) Active confirmed Problem 054842059 Non morbid obesi ty due to excess calories (E66.09) Active confirmed Problem 42849006 Memory loss (R41.3) Active confirmed Problem 972314172 Pure hypercholesterolemia (E78.00) Active confirmed Problem 105045444 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) Active confirmed Problem 276834722 Mild cognitive impairment (G31.84) Active confirmed Problem Perimenopausal disorder (416744896) Other specified menopausal and postmenopausal disorder (N95.8) Active confirmed Problem 60828426549773013 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) Active confirmed Vital Signs Blood pressure diastolic 70 mm Hg 12/16/2024 annel ght is down 4 pounds since 11-06-23 Height 62 in 12/16/2024 weight is down 4 pounds since 11-06-23 Blood pressure systolic 142 mm Hg 12/16/2024 weig ht is down 4 pounds since 11-06-23 Weight 206 lbs 12/16/2024 weight is down 4 pounds since 11-06-23 BMI 37.67 kg/m2 12/16/2024 weight is down 4 pounds since 11-06-23 Encounters Encounter Location Date Provider Diagnosis Riley Gottlieb MD [address] [place] [phone] 05/03/2024 Riley Gottlieb Pure hypercholestero lemia E78.00 ; Encounter for immunization Z23 and Prediabetes R73.09 Riley Gottlieb MD [address] [facility] [address] [place] [id number] 11/01/2024 Riley Gottlieb Acquired hypothyroid ism E03.9 ; Prediabetes R73.09 and Pure hypercholesterolemia E78.00 Riley Gottlieb MD [address] [facility] [address] [place] [id number] 04/21/2025 Riley Gottlieb Acquired hypothyroid ism E03.9 Riley Gottlieb MD [address] [facility] [address] [place] [id number] 12/16/2024 Riley Gottlieb Acquired hypothyroid ism E03.9 ; Prediabetes R73.09 ; Pure hypercholesterolemia E78.00 and Depression screening Z13.31 Riley Gottlieb MD [address] [place] [phone] 12/23/2024 Riley Gottlieb Acquired hypothyroid ism E03.9 Assessments Encounter Date Diagnosis (ICD Code) Assessment Notes Treatment Notes Treatment Clinical Notes Section Notes 05/03/2024 Pure hypercholesterolemia (ICD-10 - E78.00) 05/03/2024 Encounter for immunization (ICD-10 - Z23) 11/01/2024 Acquired hypothyroid ism (ICD-10 - E03.9) 04/21/2025 Acquired hypothyroid ism (ICD-10 - E03.9) 12/16/2024 Acquired hypothyroid ism (ICD-10 - E03.9) stable, will continue current regiment 12/16/2024 Prediabetes (ICD-10 - R73.09) well controlled, no need for medication at this time 12/23/2024 Acquired hypothyroid ism (ICD-10 - E03.9) 05/03/2024 Prediabetes (ICD-10 - R73.09) 11/01/2024 Prediabetes (ICD-10 - R73.09) 12/16/2024 Pure hypercholesterolemia (ICD-10 - E78.00) doing well, will continue current regiment 11/01/2024 Pure hypercholesterolemia (ICD-10 - E78.00) 12/16/2024 Depression screening (ICD-10 - Z13.31) negative screen Plan Of Treatment Pending Test Test Name Order Date Electrocardiogram (EKG) 07/10/2016 MRI BRAIN NO CONTRAST 05/18/2023 US CAROTID BILATERAL DOPPLER 07/02/2023 COLOGUARD 05/28/2021 TSH reflex Free T4 04/21/2025 Hold Gold 04/21/2025 MM diagnostic mammo BI 08/01/2021 MM tomosynthesis screening BI 05/28/2021 MM tomosynthesis screening BI 10/04/2020 XR DEXA axial skeleton 08/01/2021 XR DEXA axial skeleton 10/04/2020 Next Appt Details Provider Name:Riley workmanr, 06/16/2025 08:15:00 AM, [address] [place] [address], [address], [place], [phone], Provider Name:Riley workmanr, 12/12/2025 07:45:00 AM, [address] [place] [address], [address], [place], [phone], Provider Name:Riley workmanr, 12/19/2025 11:00:00 AM, [address], [address], [place], [place], [phone], Insurance Providers Payer Name Payer Address Payer Phone Subscriber Number Group Number Insured Name Patient Relationship to Insured Coverage Start Date Coverage End Date [employer] [address] [place] [address] [id number] Katherine Bolanos Self - patient is the insured [employer] [address] [place] [phone] [id number] Katherine Bolanos Self - patient is the insured 1 Medical (General) History Medical History History ICD Code hematuria work up 2003 colonoscopy refused again 2016 2022 dejan marte about it refused 2023 Low HDL (under 40) spoke to rediologist who morenita d mri and she says the [place] was insignificant Surgical History Surgery Date(Month/Year) Hystectomy 1999
== END 2025-04-21 10:57 | disposition home or self-care (01) ==
LOC: HO.LNP 10:56
PROVIDERS: Visit Provider Internal Medicine
DX: E03.9 Hypothyroidism, unspecified (principal)
CPT/HCPCS: 84443

== ENCOUNTER 2025-06-16 10:34 | Outpatient (REF) | payer MEDICARE, OTHER, SELFPAY ==
--- OUTSIDE RECORDS SUMMARY | 2024-05-03 03:15 | XMS_ITS ---
Author Organization Riley Gottlieb MD Address [address] [place], [place] [id number] Care Team Providers Care Imaging Science Professor Name Role Phone Riley Gottlieb Primary Care Provider Results Component Value Reference Range Notes Liver Panel Reviewed date:05/03/2024 06:00:11 PM Interpretation: Performing Lab:[facility], [address] [place] [phone] Notes/Report: Bilirubin Total 0.4 0.0-1.0 mg/dL Bilirubin Direct 0.2 0.0-0.5 mg/dL Aspartate Amino Transferase 18 5-31 U/L Alanine Aminotransferase 19 0-31 U/L Total Protein 7.3 6.5-8.0 g/dL Albumin Level 4.1 3.5-5.0 g/dL Alkaline Phosphatase 122 39-117 U/L Glucose Fasting Reviewed date:05/03/2024 05:59:59 PM Interpretation: Performing Lab:[facility], [address] [place] [phone] Notes/Report: Glucose Fasting 111 60-99 mg/dL A fasting glucose from 100-125 mg/dl is considered impaired (pre-diabetes). Lipid Panel with Reflex Reviewed date:05/03/2024 06:01:38 PM Interpretation: Performing Lab:[facility], [address] [place] [phone] Notes/Report: Triglycerides 110 <150 mg/dL Desirable Triglyceride: less than 150 mg/dL Borderline High Triglyceride 150-199 mg/dL High Triglyceride: 200-499 mg/dL Very High Triglyceride: greater than or equal to 5OO mg/dL Cholesterol 126 <200 mg/dL Desirable Cholesterol: less than 200 mg/dL Borderline High Cholesterol: 200-239 mg/dL High Cholesterol: greater than 239 mg/dL LDL Cholesterol Calculated 68 <100 mg/dL Desirable LDL: less than 100 mg/dL Near Optimal/Above Optimal LDL: 110-129 mg/dL Borderline High LDL: 130-159 mg/dL High LDL: 160-189 mg/dL Very High LDL: greater than or equal to 190 mg/dL HDL Cholesterol 36 >40 mg/dL Desirable HDL: greater than 40 mg/dL Note: This HDL assay may give artificially low results in patients with liver disease. Hemoglobin A1c Reviewed date:05/03/2024 05:59:50 PM Interpretation: Performing Lab:[facility], [address] [place] [phone] Notes/Report: Hemoglobin A1c % 5.6 <6.0 % Hemoglobin A1C Reference Range Adults: 4.8 - 6.0 % Non diabetic: < 6.0 % Goal: < 7.0 % Additional Action Suggested: > 8.0 % Note: Hemoglobin A1c results are invalid for patients with abnormal amounts of HbF. Blood transfusions may impact the HbA1c concentration in the patient sample. Estimated Average Glucose 114 eAG = Estimated average glucose which is %A1C expressed as average glucose, using the formula of the E5J-Xbalfky Average Glucose study (ADAG), Diabetes Care, Vol.31,#8, Mar. 2007 REASON FOR VISIT FASTING LIPIDS Immunizations Vaccine Route Administration Date Status Comme nts Influenza High Dose IM Intramuscular 05/03/2024 Administer ed Encounters Encounter Location Date Provider Diagnosis Riley Gottlieb MD [address] [place] [address] Drive [address] [place], [place] [phone] 05/03/2024 Riley Gottlieb Pure hypercholestero lemia E78.00 ; Encounter for immunization Z23 and Prediabetes R73.09 Assessments Encounter Date Diagnosis (ICD Code) Assessment Notes Treatment Notes Treatment Clinical Notes Section Notes 05/03/2024 Pure hypercholesterolemia (ICD-10 - E78.00) 05/03/2024 Encounter for immunization (ICD-10 - Z23) 05/03/2024 Prediabetes (ICD-10 - R73.09) Plan Of Treatment Next Appt Details Provider Name:Riley Saunders ier, 12/12/2025 07:45:00 AM, [address], [address], [place], [place], [phone], Provider Name:Riley Hector Chip ieangi, 12/19/2025 11:00:00 AM, [address], [address], [place], [place], [phone], Progress Notes * Katherine BOLANOS MDOB: [birth year] (75 yo F)Acc No.[id number]:05/03/2024 Progress Note Patient: Shyla BOSCHKatherine AYALA Manolo Provider: Tyron Gottlieb MD :1950 A ge:73 Y S ex:Female Date:05/03/2024 Address:[place] [address], [facility] Subjective: * Chief Complaints: * 1 . FASTING LIPIDS. * Medical History: Objective: * Vitals: Assessment: * Assessment: 1. E ncounter for immunization - Z23 (Primary) 2 . P ure hypercholesterolemia - E78.00 3 . P rediabetes - R73.09 Plan: * Treatment: 2. P rediabetes L AB: Liver Panel (Collection Date & Time - 05/03/2024) L AB: Glucose Fasting (Collection Date & Time - 05/03/2024) L AB: Lipid Panel with Reflex (Collection Date & Time - 05/03/2024) L AB: Hemoglobin A1c (Collection Date & Time - 05/03/2024) * Immunizations: Influenza High Dose : 0.5 mL (Dose No:1) (Route: Intramuscular) given by Alice Ng , Office Staff on Left Deltoid * Procedure Codes: 9 0662 FLU VACC PRSV FREE INC ANTIG, G0008 ADMN FLU VAC NO FEE SCHED SAME DAY, 33778 VENIPUNCT, ROUTINE* * * The named appointment provid er may or may not be the originator of this progress note, and it is not deemed complete until electronically signed by the appointment provider. Sign off status: Pending * Provider: Tyron Gottlieb MD Date: 0 05/03/2024 Generated for Catrachito ruiz/Hanh/Marianaitting on: 12:11 PM EDT
--- OUTSIDE RECORDS SUMMARY | 2024-05-19 13:00 | XMS_ITS ---
Author Organization Riley Gottlieb MD Address [address] [place] [phone] Care Team Providers Care Sign Erector And Repairer Name Role Phone Chery Riley Primary Care Provider Allergies No Known Allergies REASON FOR VISIT 6 MO F/U Encounters Encounter Location Date Provider Diagnosis Riley Gottlieb MD 10 [facility] [address] [place] [phone] 05/19/2024 Riley Gottlieb Plan Of Treatment Next Appt Details Provider Name:Riley neumann, 12/12/2025 07:45:00 AM, [address] [place] [address], Suite [facility], [place], [place], [phone], Provider Name:Riley neumann, 12/19/2025 11:00:00 AM, [address] [place] [address], [place] [address], [place], [place], [phone], Progress Notes * Katherine BOLANOS MDOB: [birth year] (75 yo F)Acc No.[id number]:05/19/2024 Progress Notes Patient: Katherine BLANKENSHIP Provider: Tyron Gottlieb MD :1950 A ge:74 Y S ex:Female Date:05/19/2024 Address:[place] [address], [facility], [id number] Subjective: * Chief Complaints: * 1 . [...] who read mri and she says the [facility] cave was insignificant. * Allergies: N .K.D.A. [...] MD Date: 0 05/19/2024 Generated for Catrachito ruiz/Hanh/Demetria on: 1 12:11 PM EDT
--- OUTSIDE RECORDS SUMMARY | 2024-11-01 03:15 | XMS_ITS ---
Author Organization Riley Gottlieb MD Address [address] [place] [phone] Care Team Providers Care Supervisor Communications And Signals Name Role Phone Riley Gottlieb Primary Care Provider Results Component Value Reference Range Notes Complete Blood Count Auto Di ff Reviewed date:11/01/2024 12:39:13 PM Interpretation: Performing Lab:[facility], [address] [place] [phone] Notes/Report: White Blood Count 9.0 4.8-10.8 X10*3/uL Red Blood Count 4.73 4.20-5.50 X10*6/uL Hemoglobin 14.3 12.0-16.0 g/dl Hematocrit 44.8 37.0-47.0 % Mean Corpuscular Volume 94.7 80.0-98.0 fL Mean Corpuscular Hemoglobin 30.2 27.0-33.0 pg Mean Corpuscular HGB Conc 31.9 31.0-35.0 g/dl Red Cell Distribution Width 13.7 11.0-16.0 % Platelet Count 291 160-400 X10*3/uL Mean Platelet Volume 10.4 9.4-12.3 fL Neutrophils Percent Auto 60.7 45-73 % Imm Gran Pct Auto 0.4 0.0-0.4 % Lymphocytes Percent Auto 26.4 20-40 % Monocytes Percent Auto 7.6 2-11 % Eosinophils Percent Auto 4.1 0-4 % Basophils Percent Auto 0.8 0-2 % NRBC Pct Auto 0.0 0.0-0.2 /100WBC Neutrophils Absolute Auto 5.5 2.0-8.3 x10*3/u L Imm Gran Abs Auto 0.04 0.00-0.03 X10*3/uL Lymphocytes Absolute Auto 2.4 1.2-4.9 X10*3/u L Monocytes Absolute Auto 0.7 0.1-1.2 X10*3/uL Eosinophils Absolute Auto 0.4 0.0-0.4 X10*3/u L Basophils Absolute Auto 0.1 0.0-0.2 X10*3/uL NRBC Abs Auto 0.000 0.0-0.012 X10*3/uL Comprehensive [place]. Panel Fa st Reviewed date:11/01/2024 12:32:37 PM Interpretation: Performing Lab:[facility], [address] [place] [phone] Notes/Report: Sodium 142 135-145 mmol/L Potassium 4.2 3.3-5.1 mmol/L Chloride 105 96-108 mmol/L Carbon Dioxide 31 22-29 mmol/L Anion Gap 10 12-20 Blood Urea Nitrogen 15 9-16 mg/dL Creatinine 0.91 0.5-1.4 mg/dL Estimated Glomerular Filt Rate > 60 Chronic Kidney Disease: Estimated GFR < 60 mL/min/1.73m2 Severe Kidney Disease: Estimated GFR < 15 mL/min/1.73m2 Glucose Fasting 103 60-99 mg/dL A fasting glucose from 100-125 mg/dl is considered impaired (pre-diabetes). Calcium 9.7 8.4-10.2 mg/dL Bilirubin Total 0.5 0.0-1.0 mg/dL Aspartate Amino Transferase 28 5-31 U/L Alanine Aminotransferase 27 0-31 U/L Total Protein 8.1 6.5-8.0 g/dL Albumin Level 4.4 3.5-5.0 g/dL Alkaline Phosphatase 113 39-117 U/L Lipid Panel Reviewed date:11/01/2024 12:12:34 PM Interpretation: Performing Lab:[facility], [address] [place] [phone] Notes/Report: Triglycerides 110 <150 mg/dL Desirable Triglyceride: less than 150 mg/dL Borderline High Triglyceride 150-199 mg/dL High Triglyceride: 200-499 mg/dL Very High Triglyceride: greater than or equal to 5OO mg/dL Cholesterol 159 <200 mg/dL Desirable Cholesterol: less than 200 mg/dL Borderline High Cholesterol: 200-239 mg/dL High Cholesterol: greater than 239 mg/dL LDL Cholesterol Calculated 86 <100 mg/dL Desirable LDL: less than 100 mg/dL Near Optimal/Above Optimal LDL: 110-129 mg/dL Borderline High LDL: 130-159 mg/dL High LDL: 160-189 mg/dL Very High LDL: greater than or equal to 190 mg/dL HDL Cholesterol 51 >40 mg/dL Desirable HDL: greater than 40 mg/dL Note: This HDL assay may give artificially low results in patients with liver disease. Microalbumin, Random Reviewed date:11/01/2024 12:12:17 PM Interpretation: Performing Lab:[facility], [address] [place] [phone] Notes/Report: Creatinine Urine 121.56 Microalbumin Urine 8.0 Microalbum/Creatinine Ratio Ur 6.5 <30 ug/mg cr Albumin/Creatinine Ratio Reference Ranges: Normal: < 30 ug/mg creatinine Microalbuminuria: 30 - 300 ug/mg creatinine Clinical Albuminuria: > 300 ug/mg creatinine Hemoglobin A1c Reviewed date:11/01/2024 12:12:09 PM Interpretation: Performing Lab:[address] [phone] Notes/Report: Hemoglobin A1c % 5.6 <6.0 % [...] average glucose, using the formula of the M4G-Rxjuynb Average Glucose study (ADAG), Diabetes Care, Vol.31,#8, 2007 UA ClnCatch+Micro w/rflx Cul t Reviewed date:11/01/2024 12:39:42 PM Interpretation: Performing Lab:[facility], [address] [place] [phone] Notes/Report: Urine, Clean Catch Color Urine Yellow Appearance Urine Clear PH 6.5 5.0-9.0 Glucose Urine UA Negative Negative mg/dL Urine Blood Trace Negative Specific [place] - Urine 1.020 1.005-1.025 Urine Protein Negative Neg-Trace mg/dL Urine Ketones Negative Negative mg/dL Nitrite Urine Negative Negative Leukocyte Esterase Urine Negative Negative RBC Urine 0-2 0-2 /HPF WBC Urine 0-5 0-5 /HPF Squamous Epithelial Cell Urine 3-5 0-2 /HPF Other Crystals Urine Present Talc no tete Bacteria Urine Trace None Seen Hyaline Casts Urine 0-2 0-2 /LPF REASON FOR VISIT FASTING LABS Encounters Encounter Location Date Provider Diagnosis Riley Gottlieb MD [address] [place] [address] [place] [phone] 11/01/2024 Riley Gottlieb Acquired hypothyroid ism E03.9 ; Prediabetes R73.09 and Pure hypercholesterolemia E78.00 Assessments Encounter Date Diagnosis (ICD Code) Assessment Notes Treatment Notes Treatment Clinical Notes Section Notes 11/01/2024 Acquired hypothyroid ism (ICD-10 - E03.9) 11/01/2024 Prediabetes (ICD-10 - R73.09) 11/01/2024 Pure hypercholesterolemia (ICD-10 - E78.00) Plan Of Treatment Next Appt Details Provider Name:Riley neumann, 12/12/2025 07:45:00 AM, [address] [place] [address], [address], [phone], Provider Name:Riley neumann, 12/19/2025 11:00:00 AM, [address] [place] [address], [address], [phone], Progress Notes * Katherine BOLANOS MDOB: [birth year] (75 yo F)Acc No.[id number]:11/01/2024 Progress Note Patient: Katherine BLANKENSHIP Provider: Tyron Gottlieb MD :1950 A ge:74 Y S ex:Female Date:11/01/2024 Address:[place] [address], [facility], [facility] Subjective: * Chief Complaints: * 1 . FASTING LABS. * Medical History: Objective: * Vitals: Assessment: * Assessment: 1. A cquired hypothyroidism - E03.9 (Primary) 2 . P rediabetes - R73.09? 3. P ure hypercholesterolemia - E78.00 Plan: * Treatment: 2. P rediabetes L AB: Complete Blood Count Auto Diff (Collection Date & Time - 11/01/2024 07:15 AM) L AB: Comprehensive [place]. Panel Fast (Collection Date & Time - 11/01/2024 07:15 AM) L AB: Lipid Panel (Collection Date & Time - 11/01/2024 07:15 AM) L AB: Microalbumin, Random (Collection Date & Time - 11/01/2024 07:15 AM) L AB: Hemoglobin A1c (Collection Date & Time - 11/01/2024 07:15 AM) L AB: UA ClnCatch+Micro w/rflx Cult (Collection Date & Time - 11/01/2024 07:15 AM) 3. P ure hypercholesterolemia L AB: Complete Blood Count Auto Diff (Collection Date & Time - 11/01/2024 07:15 AM) L AB: Comprehensive [place]. Panel Fast (Collection Date & Time - 11/01/2024 07:15 AM) L AB: Lipid Panel (Collection Date & Time - 11/01/2024 07:15 AM) L AB: Microalbumin, Random (Collection Date & Time - 11/01/2024 07:15 AM) L AB: Hemoglobin A1c (Collection Date & Time - 11/01/2024 07:15 AM) L AB: UA ClnCatch+Micro w/rflx Cult (Collection Date & Time - 11/01/2024 07:15 AM) * Procedure Codes: 3 6415 VENIPUNCT, ROUTINE* * * The named appointment provid er may or may not be the originator of this progress note, and it is not deemed complete until electronically signed by the appointment provider. Sign off status: Pending * Provider: Tyron Gottlieb MD Date: 0 11/01/2024 Generated for Catrachito ruiz/Hanh/Demetria on: 1 12:11 PM EDT
--- OUTSIDE RECORDS SUMMARY | 2024-12-16 07:00 | XMS_ITS ---
Author Organization Riley Gottlieb MD Address [address] [place] [phone] Care Team Providers Care Manager Eligibility Name Role Phone Riley Gottlieb Primary Care Provider Allergies No Known Allergies Results Component Value Reference Range Notes TSH reflex Free T4 Reviewed date:12/16/2024 03:48:03 PM Interpretation: Performing Lab:[facility], [address] [place] [phone] Notes/Report: TSH reflex Free T4 13.01 0.32-4.0 [...] kg/m2 12/16/2024 weight is down 4 pounds [facility] e 11-06-23 Encounters Encounter Location Date Provider Diagnosis Riley Gottlieb MD [address] [place] [address] [place] [phone] 12/16/2024 Riley Gottleib Acquired hypothyroid ism E03.9 ; Prediabetes R73.09 [...] 1 Year, Reason: Provider Name:Riley Saunders ier, 12/12/2025 07:45:00 AM, [address], [address], [place], [place], [phone], Provider Name:Riley Saunders ier, 12/19/2025 11:00:00 AM, [address], [address], [place], [place], [phone], Progress Notes * Katherine BOLANOS MDOB: [birth year] (74 yo F)Acc No.[id number]:12/16/2024 Patient: Shyla Katherine RAMON Provider: Tyron Gottlieb MD :1950 A ge:74 Y S ex:Female Date:12/16/2024 Address:[address] [address], [facility] Subjective: * Chief Complaints: * R eview [...] none. Travel outside of the [place]: yes, [place]. * Medications: T akingAspir-Low 81 MG Tablet [...] 11-06-23. * P ast Orders: L ab:Comprehensive Clubb. Panel Fast (Order Date - 11/01/2024) (Collection [...] - mg/dL L ab:Microalbumin, Random (Order Date - 11/01/2024) (Collection Date & Time - 11/01/2024 07:15 AM) Value Reference Range Creatinine Urine 121.56 - mg/dL Microalbumin Urine 8.0 - mg/L Microalbum Creatinine Ratio Ur 6.5 <30 - ug/ mg cr L ab:Hemoglobin A1c (Order Date - 11/01/2024) (Collection Date & Time - 11/01/2024 07:15 AM) Value Reference Range Hemoglobin A1c % 5.6 <6.0 - % Estimated Average Glucose 114 - mg/dL L ab:UA ClnCatch+Micro w/rflx Cult (Order Date - 11/01/2024) (Collection Date & Time - 11/01/2024 07:15 AM) Value Reference Range Color Urine Yellow - Appearance Urine Clear - PH 6.5 5.0-9.0 - Glucose Urine UA Negative Negative - mg/dL Urine Blood Trace A Negative - Specific [place] - Urine 1.020 1.005-1.025 - Urine Protein [...] ab:Complete Blood Count Auto Diff (Order Date - 11/01/2024) (Collection Date & [...] masses palpable. RECTAL EXAM: d one by surgical rn. FEMALE GENITOURINARY: d one by surgical rn. EXTREMITIES: n o clubbing, cyanosis, or edema. [...] MD Date: 0 12/16/2024 Generated for Catrachito ruiz/Hanh/Luisransmitting on: 1 12:12 PM EDT History and Physical Notes * HPI [...] mass, no lump RECTAL EXAM: done by surgical rn FEMALE GENITOURINARY: done by surgical rn ORAL CAVITY: mucosa moist
--- OUTSIDE RECORDS SUMMARY | 2024-12-23 10:35 | XMS_ITS ---
Author Organization Riley Gottlieb MD Address [address] [place] [phone] Care Team Providers Care Mine Exploration Engineer Name Role Phone Riley Gottlieb Primary Care Provider [phone] REASON FOR VISIT thyroid med Medications Medication SIG (Take, Route, Frequency, Duration) Notes Start Date End Date Status Levothyroxine Sodium 125 MCG TAKE 1 TABL ET BY MOUTH EVERY DAY Orally Once a day for 90 days Active Encounters Encounter Location Date Provider Diagnosis Riley Gottlieb MD [address] [place] [phone] 12/23/2024 Riley Gottlieb Acquired hypothyroidism E03.9 Assessments Encounter Date Diagnosis (ICD Code) Assessment Notes Treatment Notes Treatment Clinical Notes Section Notes 12/23/2024 Acquired hypothyroidism (ICD-10 - E03.9) Plan Of Treatment Medication Medication Name Sig Start Date Stop Date Notes Levothyroxine Sodium 125 MCG TAKE 1 TABL ET BY MOUTH EVERY DAY Orally Once a day for 90 days Next Appt Details Provider Name:Riley workmanr, 12/12/2025 07:45:00 AM, [address], [address], [place], [place], [phone], Provider Name:Riley Saunders nel, 12/19/2025 11:00:00 AM, [address], [address], [place], [phone], Progress Notes * Katherine BOLANOS MDOB: [birth year] (74 yo F)Acc No.[id number]:12/23/2024 Patient: Shyla Katherine RAMON :1950 A ge:74 Y S ex:Female Address:[address] [address], [place] [address] * Refills Continue Levothyroxine Sodium Tablet, 125 MCG, Orally, 90, TAKE 1 TABLET BY MOUTH EVERY DAY, Once a day, 90 days, Refills=3 * true * Date: Generated for Catrachito ruiz/Hanh/Marianaitting on: 12:10 PM EDT
--- OUTSIDE RECORDS SUMMARY | 2025-04-21 04:30 | XMS_ITS ---
Author Organization Riley Gottlieb MD Address [address] [place] [phone] Care Team Providers Care Seed Cleaning Machine Operator Name Role Phone Chery Riley Primary Care Provider Results Component Value Reference Range Notes TSH reflex Free T4 Reviewed date:04/21/2025 05:07:12 PM Interpretation: Performing Lab:[facility], [address] [place] [phone] Notes/Report: TSH reflex Free T4 1.65 0.32-4.0 uIU/mL REASON FOR VISIT 2 month repeat TSH Encounters Encounter Location Date Provider Diagnosis Riley Gottlieb MD [address] [place] [phone] 04/21/2025 Riley Gottlieb Acquired hypothyroidism E03.9 Assessments Encounter Date Diagnosis (ICD Code) Assessment Notes Treatment Notes Treatment Clinical Notes Section Notes 04/21/2025 Acquired hypothyroidism (ICD-10 - E03.9) Plan Of Treatment Next Appt Details Provider Name:Riley neumann, 12/12/2025 07:45:00 AM, [address], [address], [place], [phone], Provider Name:Riley Saunders ier, 12/19/2025 11:00:00 AM, [address], [address], [place], [phone], Progress Notes * Katherine BOLANOS MDOB: [birth year] (75 yo F)Acc No.[id number]:04/21/2025 Progress Note Patient: Katherine BLANKENSHIP Provider: Tyron Gottlieb MD :1950 A ge:74 Y S ex:Female Date:04/21/2025 Address:[address] [address], [place], [id number] Subjective: * Chief Complaints: * 1 . [...] * Provider: Tyron Gottlieb MD Date: 0 04/21/2025 Generated for Catrachito ruiz/Hanh/eTransmitting on: 12:11 PM EDT
--- OUTSIDE RECORDS SUMMARY | 2025-06-16 04:15 | XMS_ITS ---
Author Organization Riley Gottlieb MD Address [address] [place] [phone] Care Team Providers Care Gas Plant Repairer Name Role Phone Riley Gottlieb Primary Care Provider Results Component Value Reference Range Notes Hemoglobin A1c (Not yet revi ewed by provider) Interpretation: Performing Lab:[facility], [address] [place] [phone] Notes/Report: Hemoglobin A1c % 5.7 <6.0 % Hemoglobin A1C Reference Range Adults: 4.8 - 6.0 % Non diabetic: < 6.0 % Goal: < 7.0 % Additional Action Suggested: > 8.0 % Note: Hemoglobin A1c results are invalid for patients with abnormal amounts of HbF. Blood transfusions may impact the HbA1c concentration in the patient sample. Estimated Average Glucose 117 eAG = Estimated average glucose which is %A1C expressed as average glucose, using the formula of the D7F-Jeqxqse Average Glucose study (ADAG), Diabetes Care, Vol.31,#8, Mar2007 REASON FOR VISIT FASTING LIPIDS Immunizations Vaccine Route Administration Date Status Comme nts Influenza High Dose IM Intramuscular 06/16/2025 Administer ed Encounters Encounter Location Date Provider Diagnosis Riley Gottlieb MD [address] [place] [phone] 06/16/2025 Riley Gottlieb Prediabetes R73.09 ; Pure hypercholesterolemia E78.00 and Encounter for administration of vaccine Z23 Assessments Encounter Date Diagnosis (ICD Code) Assessment Notes Treatment Notes Treatment Clinical Notes Section Notes 06/16/2025 Prediabetes (ICD-10 - R73.09) 06/16/2025 Pure hypercholesterolemia (ICD-10 - E78.00) 06/16/2025 Encounter for administration of vaccine (ICD-10 - Z23) Plan Of Treatment Pending Test Test Name Order Date Liver Panel 06/16/2025 Glucose Fasting 06/16/2025 Lipid Panel with Reflex 06/16/2025 Hemoglobin A1c 06/16/2025 Next Appt Details Provider Name:Riley Saunders ieangi, 12/12/2025 07:45:00 AM, [address] [place] [address], [address], [phone], Provider Name:Riley Saunders ieangi, 12/19/2025 11:00:00 AM, [address] [place] [address], [address], [phone], Progress Notes * Katherine BOLANOS MDOB: [birth year] (75 yo F)Acc No.[id number]:06/16/2025 Progress Note Patient: Shyla BOSCHKatherine AYALA Provider: Tyron Gottlieb MD :1950 A ge:75 Y S ex:Female Date:06/16/2025 Address:[place] [address], [facility] [place], [id number] Subjective: * Chief Complaints: * 1 . FASTING LIPIDS. * Medical History: Objective: * Vitals: Assessment: * Assessment: 1. P rediabetes - R73.09 (Primary) 2 . P ure hypercholesterolemia - E78.00? 3. E ncounter for administration of vaccine - Z23 Plan: * Treatment: 2. P ure hypercholesterolemia L AB: Liver Panel L AB: Lipid Panel with Reflex L AB: Hemoglobin A1c (Collection Date & Time - 06/16/2025 08:15 AM) * Immunizations: Influenza High Dose : 0.5 mL (Dose No:1) (Route: Intramuscular) given by Alice Ng , Office Staff on Left Deltoid * Procedure Codes: 3 6415 VENIPUNCT, ROUTINE*, 13263 FLU VACC PRSV FREE INC ANTIG, G0008 ADMN FLU VAC NO FEE SCHED SAME DAY * * The named appointment provid er may or may not be the originator of this progress note, and it is not deemed complete until electronically signed by the appointment provider. Sign off status: Pending * Provider: Tyron Gottlieb MD Date: Generated for Catrachito ruiz/Hanh/Marianaitting on: 12:11 PM EDT
[2025-06-16 11:28] LABS: Total Hemoglobin (HGBA1C) 3592.4778 umol/L
[2025-06-16 11:37] LABS: Alanine Aminotransferase 20 U/L (0-31); Albumin Level 4.5 g/dL (3.5-5.0); Alkaline Phosphatase 112 U/L (39-117); Aspartate Amino Transferase 28 U/L (5-31); Cholesterol 134 mg/dL (<200); HDL Cholesterol 37 mg/dL (>40); Total Protein 7.5 g/dL (6.5-8.0); Triglycerides 120 mg/dL (<150)
--- OUTSIDE RECORDS SUMMARY | 2025-06-16 12:11 | XMS_ITS | Patient Health Record ---
Author Organization Riley Gottlieb MD Address [address] [place], [place] [id number] Care Team Providers Care Printing Manager Name Role Phone Riley Gottlieb Primary Care Provider Allergies No Known Allergies Results Component Value Reference Range Notes Complete Blood Count Auto Di ff Reviewed date:11/01/2024 12:39:13 PM Interpretation: Performing Lab:[facility], [address] [place] [phone] Notes/Report: White Blood Count 9.0 4.8-10.8 X10*3/uL [...] NRBC Abs Auto 0.000 0.0-0.012 X10*3/uL Comprehensive [place]. Panel Fa st Reviewed date:11/01/2024 12:32:37 PM Interpretation: Performing Lab:[facility], [address] [place] [phone] Notes/Report: Sodium 142 135-145 mmol/L Potassium 4.2 [...] Panel Reviewed date:11/01/2024 12:12:34 PM Interpretation: Performing Lab:[facility], [address] [place] [phone] Notes/Report: Triglycerides 110 <150 mg/dL Desirable Triglyceride: [...] Random Reviewed date:11/01/2024 12:12:17 PM Interpretation: Performing Lab:[facility], [address] [place] [phone] Notes/Report: Creatinine Urine 121.56 Microalbumin Urine 8.0 Microalbum/Creatinine Ratio Ur 6.5 <30 ug/mg cr Albumin/Creatinine Ratio Reference Ranges: Normal: < 30 ug/mg creatinine Microalbuminuria: 30 - 300 ug/mg creatinine Clinical Albuminuria: > 300 ug/mg creatinine Hemoglobin A1c Reviewed date:11/01/2024 12:12:09 PM Interpretation: Performing Lab:[address] [phone] Notes/Report: Hemoglobin A1c % 5.6 <6.0 % [...] average glucose, using the formula of the R1A-Aqljylo Average Glucose study (ADAG), Diabetes Care, Vol.31,#8, Mar. 2007 UA ClnCatch+Micro w/rflx Cul t Reviewed date:11/01/2024 12:39:42 PM Interpretation: Performing Lab:[facility], [address] [place] [phone] Notes/Report: Urine, Clean Catch Color Urine Yellow Appearance Urine Clear PH 6.5 5.0-9.0 Glucose Urine UA Negative Negative mg/dL Urine Blood Trace Negative Specific Lannon - Urine 1.020 1.005-1.025 Urine Protein Negative Neg-Trace mg/dL Urine Ketones Negative Negative mg/dL Nitrite Urine Negative Negative Leukocyte Esterase Urine Negative Negative RBC Urine 0-2 0-2 /HPF WBC Urine 0-5 0-5 /HPF Squamous Epithelial Cell Urine 3-5 0-2 /HPF Other Crystals Urine Present Talc no tete Bacteria Urine Trace None Seen Hyaline Casts Urine 0-2 0-2 /LPF TSH reflex Free T4 Reviewed date:04/21/2025 05:07:12 PM Interpretation: Performing Lab:[facility], [address] [place] [phone] Notes/Report: TSH reflex Free T4 1.65 0.32-4.0 uIU/mL Hemoglobin A1c (Not yet revi ewed by provider) Interpretation: Performing Lab:[facility], [address] [place] [phone] Notes/Report: Hemoglobin A1c % 5.7 <6.0 % [...] average glucose, using the formula of the P5O-Kygzlll Average Glucose study (ADAG), Diabetes Care, Vol.31,#8, Mar. 2007 TSH reflex Free T4 Reviewed date:12/16/2024 03:48:03 PM Interpretation: Performing Lab:[facility], [address] [place] [phone] Notes/Report: TSH reflex Free T4 13.01 0.32-4.0 uIU/mL Deandra Chairez Reviewed date:11/01/2024 12:11:17 PM Interpretation: Performing Lab:[facility], [address] [place] [phone] Notes/Report: Deandra Chairez See Note Specimen held untested for 24 hours; Call to request Chemistry testing. Free T4 (Free Thyroxine) Reviewed date:12/16/2024 03:34:27 PM Interpretation: Performing Lab:[facility], [address] [place] [phone] Notes/Report: Free T4 (Free Thyroxine) 0.85 0.71-1.85 ng/dL Deandra Chairez Reviewed date:12/16/2024 03:34:35 PM Interpretation: Performing Lab:[facility], [address] [place] [phone] Notes/Report: Deandra Chairez See Note Specimen held untested for 24 hours; Call to request Chemistry testing. Deandra Chairez Reviewed date:04/21/2025 06:44:11 PM Interpretation: Performing Lab:[facility], [address] [place] [phone] Notes/Report: Deandra Chairez See Note Specimen held untested for 24 hours; Call to request Chemistry testing. Deandra Chairez (Not yet reviewed by provider) Interpretation: Performing Lab:[facility], [address] [place] [phone] Notes/Report: Deandra Chairez See Note Specimen held [...] pt wa s given the vaccine at [facility] in [place]. It was high dose flu TDaP IM Intramuscular 06/06/2016 Administered pt was given the vaccine at the [facility] in [place]. Fluarix Quadrivalent Unknown 06/17/2016 Administered [facility] TDaP Unknown 06/17/2016 Administered [facility] Flu[facility]ix Quadrivalent IM Intramuscular 07/27/2017 Administe red [...] ed SARS-COV-2 Pfizer Unknown 05/26/2024 Administered [facility] Influenza High Dose IM Intramuscular 06/16/2025 Administer ed Flu Vaccine Unknown 06/12/2015 Refused Fluarix Quadrivalent [...] W/U Status Risk Notes Problem Bilateral tinnitus (2549145162793) Tinnitus, bilateral (H93.13) Active confirmed Problem Chronic sinusitis (43253743) Chronic sinusitis, unspecified (J32.9) Active confirmed Problem 33035602 Kidney stone (N20.0) Active confirmed Problem 732815431 Acquired hypothyroidism (E03.9) Active confirmed Problem 0550931 Prediabetes (R73.09) Active confirmed Problem 980953699 Non morbid obesi ty due to excess calories (E66.09) Active confirmed Problem 25208846 Memory loss (R41.3) Active confirmed Problem 549101611 Pure hypercholesterolemia (E78.00) Active confirmed Problem 424934917 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) Active confirmed Problem 091562204 Mild cognitive impairment (G31.84) Active confirmed Problem Perimenopausal disorder (993028646) Other specified menopausal and postmenopausal disorder (N95.8) Active confirmed Problem 14119114418539011 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) Active confirmed Vital [...] Riley Gottlieb MD [address] [place] [phone] 11/01/2024 Riley Gottlieb Acquired hypothyroid ism E03.9 ; Prediabetes R73.09 and Pure hypercholesterolemia E78.00 Riley Gottlieb MD [address] [place] [id number] 04/21/2025 Riley Gottlieb Acquired hypothyroid ism E03.9 Riley Gottlieb MD [address] [place] [id number] 06/16/2025 Riley Gottlieb Prediabetes R73.09 ; Pure hypercholesterolemia E78.00 and Encounter for administration of vaccine Z23 Riley Gottlieb MD [address] [place], [place] [phone] 12/16/2024 Rileykeyshawn Gottlieb Acquired hypothyroid ism E03.9 ; Prediabetes R73.09 ; Pure hypercholesterolemia E78.00 and Depression screening Z13.31 Riley Gottlieb MD [address] [place], [place] [phone] 12/23/2024 Riley Chery Acquired hypothyroid ism E03.9 Assessments Encounter Date Diagnosis (ICD Code) Assessment Notes Treatment Notes Treatment Clinical Notes Section Notes 11/01/2024 Acquired hypothyroid ism (ICD-10 - E03.9) 04/21/2025 Acquired hypothyroid ism (ICD-10 - E03.9) 06/16/2025 Prediabetes (ICD-10 - R73.09) 06/16/2025 Pure hypercholesterolemia (ICD-10 - E78.00) 12/16/2024 Acquired hypothyroid ism (ICD-10 - E03.9) stable, will continue current regiment 12/16/2024 Prediabetes (ICD-10 - R73.09) well controlled, no need for medication at this time 12/23/2024 Acquired hypothyroid ism (ICD-10 - E03.9) 11/01/2024 Prediabetes (ICD-10 - R73.09) 06/16/2025 Encounter for administration of vaccine (ICD-10 - Z23) 12/16/2024 Pure hypercholesterolemia (ICD-10 - E78.00) doing well, will continue current regiment 11/01/2024 Pure hypercholesterolemia (ICD-10 - E78.00) 12/16/2024 Depression screening (ICD-10 - Z13.31) negative screen Plan Of Treatment Pending Test Test Name Order Date Electrocardiogram (EKG) 07/10/2016 MRI BRAIN NO CONTRAST 05/18/2023 US CAROTID BILATERAL DOPPLER 07/02/2023 COLOGUARD 05/28/2021 Liver Panel 06/16/2025 Glucose Fasting 06/16/2025 Lipid Panel with Reflex 06/16/2025 Hold Gold 06/16/2025 MM diagnostic mammo BI 08/01/2021 MM tomosynthesis screening BI 05/28/2021 MM tomosynthesis screening BI 10/04/2020 XR DEXA axial skeleton 10/04/2020 XR DEXA axial skeleton 08/01/2021 Hemoglobin A1c 06/16/2025 Next Appt Details Provider Name:Riley Saunders ier, 12/12/2025 07:45:00 AM, [address] [facility], [address], [place], [place], [phone], Provider Name:Riley Saunders ier, 12/19/2025 11:00:00 AM, [address] [facility], [address], [place], [place], [phone], Insurance Providers Payer Name Payer Address Payer Phone Subscriber Number Group Number Insured Name Patient Relationship to Insured Coverage Start Date Coverage End Date MEDICARE [facility] [address] [place] [address] [id number] Katherine Bolanos Self - patient is the insured [employer] [address] [place] [address] [id number] Katherine Bolanos Self - patient is the insured Medical (General) History Medical History History ICD Code hematuria work up 2003 colonoscopy refused again 2016 2022 dejan marte about it refused 2023 Low HDL (under 40) spoke to rediologist who morenita d mri and she says the [place] was insignificant Surgical History Surgery Date(Month/Year) Hystectomy 1999
[2025-06-16 13:48] LABS: Reflex LDLD? No
== END 2025-06-16 10:35 | disposition home or self-care (01) ==
LOC: HO.LNP 10:34
PROVIDERS: Visit Provider Internal Medicine
DX: R73.03 Prediabetes (principal); E78.00 Pure hypercholesterolemia, unspecified
CPT/HCPCS: 80061; 80076; 82947; 83036